=== PATIENT | female | born 1965 | race African-American/Black ===

== ENCOUNTER → 2016-06-25 10:06 | Outpatient (CLI) | payer MEDICARE, MEDICAID | END | disposition home or self-care (01) | LOC: D.US 10:06 | DX: M71.22 Synovial cyst of popliteal space [Baker], left knee (principal) ==

== ENCOUNTER → 2016-07-23 14:08 | Outpatient (CLI) | payer MEDICARE, MEDICAID | END | disposition home or self-care (01) | LOC: D.MRI 07-22 09:00 | DX: M71.21 Synovial cyst of popliteal space [Baker], right knee (principal) ==

== ENCOUNTER 2018-07-28 11:36 | Emergency (ER) | payer MEDICARE, MEDICAID ==
[~2018-07-28] VITALS: Ht 170.2 cm; Wt 89.5 kg
[2018-07-28] MEDS ORDERED: CENTRUM COMPLE1 EACH PO (11:59)
[2018-07-28] MEDS ORDERED: CLARINEX5 MG PO (12:00)
[2018-07-28] MEDS ORDERED: XANAX2 MG PO (12:00)
[2018-07-28] MEDS ORDERED: NEURONTIN600 MG PO (12:01)
[2018-07-28] MEDS ORDERED: K-DUR20 MEQ PO (12:01)
[2018-07-28] MEDS ORDERED: LASIX40 MG PO (12:01)
[2018-07-28 12:33] LABS: BASOPHILS 0.2 % (0-2); EOSINOPHILS 0.6 % (0-7); HEMATOCRIT 44.7 % (36.0-48.0); HEMOGLOBIN 15.8 g/dL (12-16); IMMATURE GRANULOCYTES 0.2 % (0-5); LYMPHOCYTES 22.2 % (15-50); MCH 32.5 pg (26.0-34.0); MCHC 35.3 g/dL (31.0-37.0); MEAN PLATELET VOLUME 10.4 fL (7.4-10.4); MONOCYTES 9.7 % (2-11); NEUTROPHILS 67.1 % (40-80); PLATELET COUNT 310 10x3/uL (130-400); RBC 4.86 10x6/uL (4.00-5.40); RDW 12.7 % (11.5-14.5); WBC 5.2 10x3/uL (4.8-10.8)
[2018-07-28 13:00] LABS: APPEARANCE HAZY (CLEAR); BILIRUBIN 2+ (NEGATIVE); COLOR YELLOW (YELLOW); GLUCOSE NEGATIVE (NEGATIVE); KETONE SMALL mg/dL (NEGATIVE); NITRITE NEGATIVE (NEGATIVE); PROTEIN 1+ mg/dL (NEGATIVE); SPECIFIC GRAVITY 1.015 (1.005-1.020); UROBILINOGEN NORMAL (NORMAL)
[2018-07-28 13:03] LABS: BACTERIA MODERATE /hpf (NONE SEEN); EPITHELIAL CELLS 0-5 /hpf (0-5); RED CELLS - URINE 0-5 /hpf (0-5); WHITE CELLS - URINE 0-5 /hpf (0-5)
[2018-07-28 13:04] LABS: ANION GAP 16.8 mmol/L (8-16); BILIRUBIN - TOTAL 0.44 mg/dL (0.2-1.3); CALCIUM 9.7 mg/dL (8.5-10.1); CARBON DIOXIDE 24.2 mmol/L (21.0-32.0); CREATININE - SERUM 0.9 mg/dL (0.6-1.3)
[2018-07-28] MEDS ORDERED: TAMIFLU75 MG PO (14:14)
[2018-07-28] MEDS ORDERED: ZOFRAN ODT4 MG/UDTAB PO (14:14)
== END 2018-07-28 15:15 | disposition home or self-care (01) ==
LOC: D.ER 11:36
PROVIDERS: Family Medicine
DX: J11.1 Influenza due to unidentified influenza virus with other respiratory manifestations (principal); R05 Cough; R11.2 Nausea with vomiting, unspecified; R19.7 Diarrhea, unspecified

== ENCOUNTER 2019-03-18 13:32 | Emergency (ER) | payer MEDICARE ==
[~2019-03-18] VITALS: Ht 170.2 cm; Wt 85.0 kg
[~2019-03-18 13:32] MED LIST: CENTRUM COMPLE1 EACH PO; CLARINEX5 MG PO; K-DUR20 MEQ PO; LASIX40 MG PO; NEURONTIN600 MG PO; TAMIFLU75 MG PO; XANAX2 MG PO; ZOFRAN ODT4 MG/UDTAB PO
[2019-03-18 13:40] VITALS: Ht 170.2 cm; Wt 85.0 kg
[2019-03-18 14:11] LABS: BASOPHILS 0.2 % (0-2); EOSINOPHILS 0.2 % (0-7); HEMATOCRIT 38.3 % (36.0-48.0); HEMOGLOBIN 13.1 g/dL (12-16); IMMATURE GRANULOCYTES 0.2 % (0-5); LYMPHOCYTES 28.6 % (15-50); MCHC 34.2 g/dL (31.0-37.0); MCV 99.5 fL (80.0-100.0); MEAN PLATELET VOLUME 9.3 fL (7.4-10.4); NEUTROPHILS 55.8 % (40-80); RBC 3.85 10x6/uL (4.00-5.40); RDW 12.8 % (11.5-14.5); WBC 4.8 10x3/uL (4.8-10.8)
[2019-03-18 14:12] LABS: PLATELET COUNT 222 10x3/uL (130-400)
[2019-03-18 14:25] LABS: APTT 23.8 SECONDS (22.8-39.4); INR 1.12 (0.85-1.17); PROTIME 13.8 SECONDS (11.6-15.0)
[2019-03-18 14:31] LABS: ALBUMIN 3.6 g/dL (3.4-5.0); ALKALINE PHOSPHATASE 77 U/L (46-116); ALT (SGPT) 15 U/L (10-68); BILIRUBIN - TOTAL 0.41 mg/dL (0.2-1.3); CALC OSMOLALITY 276 mosm/kg (275-300); CALCIUM 9.1 mg/dL (8.5-10.1); CARBON DIOXIDE 26.5 mmol/L (21.0-32.0); CHLORIDE - SERUM 104 mmol/L (98-107); CREATININE - SERUM 0.8 mg/dL (0.6-1.3); GLUCOSE 97 mg/dL (74-106); POTASSIUM - SERUM 4.1 mmol/L (3.5-5.1); PROTEIN - SERUM 7.9 g/dL (6.4-8.2); SODIUM 139 mmol/L (136-145); UREA NITROGEN 11 mg/dL (7-18); eGFR NON AFRICAN AMERICAN 80 mL/min (90-120)
[2019-03-18 14:41] LABS: CKMB 0.8 U/L (0.0-3.6); CREATINE KINASE 61 UL (21-215); THYROID STIMULATING HORMONE 0.94 uIU/mL (0.36-3.74)
[2019-03-18 14:47] LABS: TROPONIN-I < 0.017 ng/mL (0.000-0.060)
[2019-03-18 15:29] VITALS: BP 114/71
== END 2019-03-18 15:30 | disposition home or self-care (01) ==
LOC: EDBD 13:32 → D.ER 13:32
PROVIDERS: Emergency Medicine
DX: S49.91XA Unspecified injury of right shoulder and upper arm, initial encounter (principal); W19.XXXA Unspecified fall, initial encounter; R41.82 Altered mental status, unspecified

== ENCOUNTER 2019-06-10 16:12 | Inpatient (IN) | payer MEDICARE ==
[~2019-06-10] VITALS: Ht 170.2 cm; Wt 82.0 kg
[2019-06-10 17:11] LABS: HEMATOCRIT 33.7 % (36.0-48.0); HEMOGLOBIN 11.7 g/dL (12-16); MCH 31.8 pg (26.0-34.0); MCHC 34.7 g/dL (31.0-37.0); MCV 91.6 fL (80.0-100.0); MEAN PLATELET VOLUME 9.3 fL (7.4-10.4); RBC 3.68 10x6/uL (4.00-5.40); RDW 11.5 % (11.5-14.5)
[2019-06-10] MEDS ORDERED: DECADRON4 MG PO (17:11)
[2019-06-10] MEDS ORDERED: ZOFRAN8 MG PO (17:12)
[2019-06-10] MEDS ORDERED: ELAVIL25 MG PO (17:12)
[2019-06-10] MEDS ORDERED: NAMENDA10 MG PO (17:12)
[2019-06-10 17:14] LABS: PLATELET COUNT 88 10x3/uL (130-400); WBC 0.6 10x3/uL (4.8-10.8)
[2019-06-10 17:15] LABS: CALC OSMOLALITY 273 mosm/kg (275-300); CALCIUM 8.2 mg/dL (8.5-10.1); CARBON DIOXIDE 27.4 mmol/L (21.0-32.0); CHLORIDE - SERUM 102 mmol/L (98-107); CREATININE - SERUM 0.8 mg/dL (0.6-1.3); GLUCOSE 127 mg/dL (74-106); POTASSIUM - SERUM 3.7 mmol/L (3.5-5.1); SODIUM 137 mmol/L (136-145); UREA NITROGEN 8 mg/dL (7-18); eGFR NON AFRICAN AMERICAN 80 mL/min (90-120)
[2019-06-10 17:15] LABS: APPEARANCE CLEAR (CLEAR); BILIRUBIN NEGATIVE (NEGATIVE); COLOR YELLOW (YELLOW); GLUCOSE NEGATIVE (NEGATIVE); KETONE MODERATE mg/dL (NEGATIVE); NITRITE NEGATIVE (NEGATIVE); PROTEIN NEGATIVE (NEGATIVE); UROBILINOGEN NORMAL (NORMAL)
[2019-06-10 17:32] LABS: ALBUMIN 3.1 g/dL (3.4-5.0); ALKALINE PHOSPHATASE 55 U/L (46-116); ALT (SGPT) 19 U/L (10-68); BILIRUBIN - TOTAL 0.11 mg/dL (0.2-1.3); CKMB 0.2 U/L (0.0-3.6); CREATINE KINASE 33 UL (21-215); MAGNESIUM - SERUM 1.6 mg/dL (1.8-2.4); PROTEIN - SERUM 6.9 g/dL (6.4-8.2); TROPONIN-I < 0.017 ng/mL (0.000-0.060)
[2019-06-10 17:34] LABS: UDS - AMPHET NEGATIVE QUAL (NEGATIVE); UDS - BARB NEGATIVE QUAL (NEGATIVE); UDS - BENZO NEGATIVE QUAL (NEGATIVE); UDS - COCAINE NEGATIVE QUAL (NEGATIVE); UDS - OPIATE NEGATIVE QUAL (NEGATIVE); UDS - PCP NEGATIVE QUAL (NEGATIVE); UDS - THC NEGATIVE QUAL (NEGATIVE)
[2019-06-10 18:11] LABS: BASOPHILS 4 % (0-2); LYMPHOCYTES 60 % (15-50); MONOCYTES 4 % (2-11); NEUTROPHILS 32 % (40-80); PLATELET ESTIMATE DECREASED
--- NOTE | 2019-06-10 18:20 | NUR ---
PT IS RESPONSIVE TO VERBAL STIMULI AND ALERT; SHE IS STILL UNABLE TO ANSWER QUESTIONS OR SPEAK WITH UNDERSTANDABLE WORDS;
--- NOTE | 2019-06-10 18:21 | NUR ---
FAMILY MEMBER ASKED THAT THE PATIENT NOT RECEIVE THE ROCEPHIN UNITL HE IS SURE SHE DOES NOT HAVE AN ALLERGY TO THE MEDICATION; HE IS AWAITING FOR SOMEONE TO BRING THE LIST WITH PREVIOUS ALLERGY
--- NOTE | 2019-06-10 18:46 | NUR ---
PT'S SPOUSE STATES SHE CAN HAVE THE ABX.
[2019-06-10 19:01] VITALS: BP 108/58
--- NOTE | 2019-06-10 20:27 | NUR ---
PT GIVEN HOME MED 1/[address] FRIDA PACHECO[address]
--- NOTE | 2019-06-10 20:44 | NUR ---
PT RECIEVED FROM ER VIA STRETCHER, ALERT, FOLLOWS COMMANDS, ABLE TO COMM SOME NEEDS BUT MOST OF SPEECH IS GIBBERISH, LUNGS CLEAR, RIGHT INFUSAPORT WITH NS @ 200 CC/HR, CHEN PATENT TO BSD, VITALS STABLE
[2019-06-10 21:10] VITALS: BP 115/92; BMI 28.3
[2019-06-10 23:00] VITALS: BP 81/61
--- NOTE | 2019-06-10 23:00 | NUR ---
PT RESTING QUIETLY WITHOUT DISTRESS, WILL CONT TO MONITOR
[2019-06-11] VITALS (19 sets, daily range): BP systolic 80–122; BP diastolic 54–90; Ht 170.2 cm; Wt 82.0 kg
--- NOTE | 2019-06-11 01:20 | NUR ---
PT ATTEMPTING TO TALK, SPEECH IS MOSTLY GIBBERISH OR WORD SALAD, CAN ANSWER YES TO SOME QUESTIONS, UNABLE TO WRITE LEGIBLE ON PAPER, BECOMING FRUSTRATED, ABLE TO ASCERTAIN PT NAUSEATED, GIVEN ZOFRAN FOR NAUSEA, WILL CONT TO MONITOR
--- NOTE | 2019-06-11 03:30 | NUR ---
LAB IN ROOM FOR BLOOD DRAW, PT ALERT, VITALS STABLE
[2019-06-11 04:05] LABS: BASOPHILS 0 % (0-2); EOSINOPHILS 0 % (0-7); HEMATOCRIT 29.9 % (36.0-48.0); HEMOGLOBIN 10.3 g/dL (12-16); MCH 31.4 pg (26.0-34.0); MCHC 34.4 g/dL (31.0-37.0); MCV 91.2 fL (80.0-100.0); MEAN PLATELET VOLUME 9.3 fL (7.4-10.4); MONOCYTES 2.4 % (2-11); NEUTROPHILS 36.6 % (40-80); PLATELET COUNT 86 10x3/uL (130-400); RBC 3.28 10x6/uL (4.00-5.40); RDW 11.4 % (11.5-14.5)
[2019-06-11 04:06] LABS: ALBUMIN 2.6 g/dL (3.4-5.0); ALKALINE PHOSPHATASE 42 U/L (46-116); ALT (SGPT) 16 U/L (10-68); BILIRUBIN - TOTAL 0.29 mg/dL (0.2-1.3); CALCIUM 7.7 mg/dL (8.5-10.1); CARBON DIOXIDE 25.5 mmol/L (21.0-32.0); CHLORIDE - SERUM 107 mmol/L (98-107); CREATININE - SERUM 0.7 mg/dL (0.6-1.3); GLUCOSE 120 mg/dL (74-106); POTASSIUM - SERUM 3.8 mmol/L (3.5-5.1); PROTEIN - SERUM 6.1 g/dL (6.4-8.2); SODIUM 139 mmol/L (136-145); eGFR NON AFRICAN AMERICAN > 90 mL/min (90-120)
[2019-06-11 04:16] LABS: WBC 0.4 10x3/uL (4.8-10.8)
[2019-06-11 04:17] LABS: CALC OSMOLALITY 275 mosm/kg (275-300); UREA NITROGEN 4 mg/dL (7-18)
--- NOTE | 2019-06-11 05:17 | NUR ---
pt sleeping with no distress noted
--- NOTE | 2019-06-11 10:32 | NUR ---
0700 PT RECIEVED IN BED, AWAKENS TO VERBAL STIMULI, ABLE TO FOLLOW COMMANDS, HAND SENIOR SOFTWARE PROJECT MANAGER EQUAL, WHEN SPEAKING HAS WORD SALAD AND ECHOLALIA, SEE SHIFT ASSESSMENT FOR DETAILS 0900 WHEN GIVING AM MEDS PT CLIMBING OUT OF BED, STATED NO AND WAS REPEATING "I WANT IN BED" ANGRILY BUT DID NOT GET BACK IN BED, ASKED IF WANTED IN CHAIR/TO USE BATHROOM/ETC AND PT BECAME MORE AGITATED AND WOULD NOT SIT DOWN OR LET GO OF MEDICATIONS, CHARGE NURSE CALLED TO ROOM AND PT TOOK MEDICATIONS AND LAYED BACK IN BED 0930 PTS SON CALLED FOR UPDATE, TOLD THAT WITHOUT SECURITY CODE SET UP COULD NOT GIVE DETAILS BUT HE SHOULD COME IN AND SET ONE UP, SON BEGAN YELLING THAT HE WAS WORKING AND COULDNT COME IN, WAS TOLD PT IS STABLE AND HE CONTINUED YELLING THEN HUNG UP. CHARGE NURSE NOTIFIED
--- NOTE | 2019-06-11 11:05 | NUR ---
REPORT GIVEN TO Adithya DURAN RN
--- NOTE | 2019-06-11 11:27 | NUR ---
REPORT RECEIVED. WALKED INTO PT ROOM TO GIVE PROBIOTIC. PT WOULD BARELY OPEN EYES TO LOOK AT ME. REPEATED ASKING IF PT WOULD TAKE MEDICATION. IGNORED ME THEN WENT BACK TO SLEEP. WILL CONTINUE TO MONITOR.
--- NOTE | 2019-06-11 11:57 | MORECARE ---
CASE MANAGEMENT DISCHARGE SUMMARY PATIENT: STEVE DORAN UNIT: [id number] ADM DATE: 06/10/19 AGE: 53 : 67 SEX: F ROOM/BED: D.2311 AUTHOR: BRYANNA DICKSON PHYSICIAN: REFERRING PHYSICIAN: DALE GALICIA MD DATE OF SERVICE: 06/11/19 Discharge Plan Patient Name: STEVE DORAN Facility: [facility]:[place] : 1965 Planned Disposition: Anticipated Discharge Date: Discharge Date: Expected LOS: Initial Reviewer: [email or web address] Initial Review Date: 06/10/2019 Generated: 06/11/19 12:57 pm Comments DCP- Discharge Planning Updated by [email or web address]: Cheryl Alonso on 06/11/19 10:[address] CM received notification that patient is needing transferred to [facility]. CM was told that [facility] didn't have bed available on admit. CM contacted transfer center to check status of transfer and they didn't have anything on this patient. CM gave patient information to transfer center and faxed records. CM contacted Flight Engineer Performance Qualified Hortencia of request for transfer and she agreed. CM will await call back from transfer center on bed. CM will continue to follow and assist as needed with discharge planning / needs External Providers External Provider: TRANS-TRANSFER CALL CENTER Next Contact Date: Service Request Date: Service Type: Resolution: Reviewer: Comments: Patient Name: STEVE DORAN Page [phone] at 1157 All edits/amendments must be made on the electronic document DICTATION DATE: 06/11/19 1157 CARD SORTER: GENE 06/11/19 1157 RPT#: [id number] DC DATE: STATUS: ADM IN [facility] [address] [place] [address] END OF REPORT
--- NOTE | 2019-06-11 13:14 | NUR ---
PT'S IN TO ANSWER SOME QUESTIONS. HE STATES THAT " HASN'T TAKEN ANY PRESCRIBED MEDICATIONS SINCE D/C FROM [facility] ON TUESDAY (06/08/19)." STATES THAT HE THINKS IT'S POSSIBLE PT HAS STARTED USING HEROIN. SAID THAT SHE WAS BOTH HOMICIDAL AND SUICIDAL AND THAT SHE "HAD A LIST OF PEOPLE SHE WANTED TO KILL" WHEN SHE WAS DISCHARGED FROM [facility]. , [phone]
--- NOTE | 2019-06-11 14:15 | NUR ---
REPORT GIVEN TO [facility]. SPOKE WITH SHANNAN SIBLEY. STATED THEY HAD ACCEPTED PT BUT WERE WAITING ON A BED TO OPEN.
--- NOTE | 2019-06-11 14:28 | NUR ---
PT NOTIFIED OF TRANSFER TO [facility] WHEN A BED BECOMES AVAILABLE. VERBALIZES UNDERSTANDING. ABLE TO HAVE CONVERSATION WITH ME WITHOUT ANY APHASIC EPISODES. WILL CONTINUE TO MONITOR.
--- NOTE | 2019-06-11 16:03 | NUR ---
VISITED WITH PT. LEFT NUMBER IN CASE PT TRANSFERS BEFORE HE GETS OFF WORK AT 1730. PT HAS NO COMPLAINTS OR NEEDS AT THIS TIME. WILL CONTINUE TO MONITOR.
--- NOTE | 2019-06-11 17:30 | MORECARE ---
CASE MANAGEMENT DISCHARGE SUMMARY PATIENT: STEVE DORAN UNIT: [id number] ADM DATE: 06/10/19 AGE: 53 : 67 SEX: F ROOM/BED: D.2311 AUTHOR: BRYANNA DICKSON PHYSICIAN: REFERRING PHYSICIAN: DALE GALICIA MD DATE OF SERVICE: 06/11/19 Discharge Plan Patient Name: STEVE DORAN Facility: [facility]:[place] : 1965 Planned Disposition: Anticipated Discharge Date: Discharge Date: Expected LOS: Initial Reviewer: [email or web address] Initial Review Date: 06/10/2019 Generated: 06/11/19 6:29 pm Comments DCP- Discharge Planning Updated by [email or web address]: Cheryl Alonso on 06/11/19 4:[address] [facility] has accepted patient awaiting bed availability. CM will continue to follow and assist as needed with discharge planning / needs DCP- Discharge Planning Updated by [email or web address]: Cheryl Alonso on 06/11/19 10:[address] CM received notification that patient is needing transferred to [facility]. CM was told that [facility] didn't have bed available on admit. CM contacted transfer center to check status of transfer and they didn't have anything on this patient. CM gave patient information to transfer center and faxed records. CM contacted Egg Grader Hortencia of request for transfer and she agreed. CM will await call back from transfer center on bed. CM will continue to follow and assist as needed with discharge planning / needs Last DP export: 06/11/19 10:57 am Patient Name: STEVE DORAN Page 19853 at 1730 All edits/amendments must be made on the electronic document DICTATION DATE: 06/11/191728 CERAMIC TILE SETTER: GENE 06/11/191728 RPT#: [id number] DC DATE: STATUS: ADM IN [address] [place] [address] END OF REPORT
--- NOTE | 2019-06-11 17:47 | NUR ---
CALL CENTER CALLED TO UPDATE AND STATED THERE WAS STILL NO BED AVAILABLE AT [facility] AT THIS TIME. WILL NOTIFY US WHEN THERE IS ONE.
--- NOTE | 2019-06-12 17:20 | MORECARE ---
CASE MANAGEMENT DISCHARGE SUMMARY PATIENT: STEVE DORAN UNIT: [id number] ADM DATE: 06/10/19 AGE: 53 : 67 SEX: F ROOM/BED: D.2311 AUTHOR: BRYANNA DICKSON PHYSICIAN: REFERRING PHYSICIAN: DALE GALICIA MD DATE OF SERVICE: 06/12/19 Discharge Plan Patient Name: STEVE DORAN [facility] [facility] 1965 Planned Disposition: Anticipated Discharge Date: Discharge Date: 06/11/2019 Expected LOS: Initial Reviewer: [email or web address] Initial Review Date: 06/10/2019 Generated: 06/12/19 6:20 pm Comments DCP- Discharge Planning Updated by [email or web address]: Cheryl Alonso on 06/11/19 4:[address] [facility] has accepted patient awaiting bed availability. CM will continue to follow and assist as needed with discharge planning / needs DCP- Discharge Planning Updated by [email or web address]: Cheryl Alonso on 06/11/19 10:[address] CM received notification that patient is needing transferred to [facility]. CM was told that [facility] didn't have bed available on admit. CM contacted transfer center to check status of transfer and they didn't have anything on this patient. CM gave patient information to transfer center and faxed records. CM contacted Preparation Supervisor Canning Hortencia of request for transfer and she agreed. CM will await call back from transfer center on bed. CM will continue to follow and assist as needed with discharge planning / needs Last DP export: 06/11/19 4:30 pm Patient Name: STEVE DORAN Page [phone] at 1720 All edits/amendments must be made on the electronic document DICTATION DATE: 06/12/191719 JOURNALISTS AND OTHER WRITERS: GENE 06/12/191719 RPT#: [id number] DC DATE:06/11/19 STATUS: DIS IN [facility] [address] [place] [address] END OF REPORT
== END 2019-06-11 22:32 | disposition short-term general hospital (02) | DRG 872 ==
LOC: D.ER 16:12 → D.ICU 19:38
PROVIDERS: Family Medicine; ADMIT Legal Medicine; ATTEND Legal Medicine
DX: A41.9 Sepsis, unspecified organism (principal); E27.2 Addisonian crisis; C79.31 Secondary malignant neoplasm of brain; C50.919 Malignant neoplasm of unspecified site of unspecified female breast; D72.829 Elevated white blood cell count, unspecified

== ENCOUNTER 2019-07-06 08:52 | Emergency (ER) | payer MEDICARE ==
[~2019-07-06] VITALS: Ht 170.2 cm; Wt 77.3 kg
[~2019-07-06 08:52] MED LIST changes: +DECADRON4 MG PO; +ELAVIL25 MG PO; +NAMENDA10 MG PO; +ZOFRAN8 MG PO
[2019-07-06 08:54] VITALS: Ht 170.2 cm; Wt 77.3 kg
[2019-07-06 09:37] LABS: INR 1.05 (0.85-1.17); PROTIME 13.7 SECONDS (11.6-15.0)
[2019-07-06 09:38] LABS: APTT 34.7 SECONDS (22.8-39.4)
[2019-07-06 10:00] LABS: ALBUMIN 2.9 g/dL (3.4-5.0); ALKALINE PHOSPHATASE 55 U/L (30-120); ALT (SGPT) 28 U/L (10-68); BILIRUBIN - TOTAL 0.25 mg/dL (0.2-1.3); CALC OSMOLALITY 276 mosm/kg (275-300); CALCIUM 8.3 mg/dL (8.5-10.1); CARBON DIOXIDE 26.7 mmol/L (21.0-32.0); CHLORIDE - SERUM 102 mmol/L (98-107); CKMB 0.3 U/L (0.0-3.6); CREATINE KINASE 27 UL (21-215); CREATININE - SERUM 0.9 mg/dL (0.6-1.3); GLUCOSE 123 mg/dL (74-106); MAGNESIUM - SERUM 1.3 mg/dL (1.8-2.4); PROTEIN - SERUM 6.4 g/dL (6.4-8.2); SODIUM 140 mmol/L (136-145); THYROID STIMULATING HORMONE 3.17 uIU/mL (0.36-3.74); TROPONIN-I 0.022 ng/mL (0.000-0.060); UREA NITROGEN 4 mg/dL (7-18); eGFR NON AFRICAN AMERICAN 70 mL/min (90-120)
[2019-07-06 10:05] LABS: BASOPHILS 0.2 % (0-2); HEMATOCRIT 29.8 % (36.0-48.0); HEMOGLOBIN 9.8 g/dL (12-16); IMMATURE GRANULOCYTES 0.8 % (0-5); LYMPHOCYTES 15.1 % (15-50); MCH 30.9 pg (26.0-34.0); MCHC 32.9 g/dL (31.0-37.0); MEAN PLATELET VOLUME 8.9 fL (7.4-10.4); MONOCYTES 11.8 % (2-11); NEUTROPHILS 71.1 % (40-80); RBC 3.17 10x6/uL (4.00-5.40); RDW 13.1 % (11.5-14.5); WBC 5.9 10x3/uL (4.8-10.8)
[2019-07-06 10:07] LABS: PLATELET COUNT 290 10x3/uL (130-400)
[2019-07-06 10:08] LABS: POTASSIUM - SERUM 2.9 mmol/L (3.5-5.1)
[2019-07-06 11:25] VITALS: BP 101/71
== END 2019-07-06 11:25 | disposition other institution (70) ==
LOC: D.ER 08:52
PROVIDERS: Family Medicine
DX: R29.818 Other symptoms and signs involving the nervous system (principal); R47.01 Aphasia; G40.89 Other seizures; Z85.841 Personal history of malignant neoplasm of brain

== ENCOUNTER 2019-08-26 18:41 | Emergency (ER) | payer MEDICARE ==
[2019-08-26 18:45] VITALS: Ht 170.2 cm
[2019-08-26 19:42] LABS: BASOPHILS 0.2 % (0-2); EOSINOPHILS 0 % (0-7); HEMATOCRIT 34.6 % (36.0-48.0); HEMOGLOBIN 11.5 g/dL (12-16); IMMATURE GRANULOCYTES 0.6 % (0-5); LYMPHOCYTES 13.5 % (15-50); MCH 31.6 pg (26.0-34.0); MCHC 33.2 g/dL (31.0-37.0); MCV 95.1 fL (80.0-100.0); NEUTROPHILS 69.7 % (40-80); PLATELET COUNT 267 10x3/uL (130-400); RBC 3.64 10x6/uL (4.00-5.40); RDW 13.7 % (11.5-14.5); WBC 5.3 10x3/uL (4.8-10.8)
[2019-08-26 19:49] LABS: CALC OSMOLALITY 268 mosm/kg (275-300); CALCIUM 8.8 mg/dL (8.5-10.1); CARBON DIOXIDE 26.1 mmol/L (21.0-32.0); CHLORIDE - SERUM 99 mmol/L (98-107); CREATININE - SERUM 0.8 mg/dL (0.6-1.3); GLUCOSE 106 mg/dL (74-106); POTASSIUM - SERUM 3.6 mmol/L (3.5-5.1); SODIUM 135 mmol/L (136-145); UREA NITROGEN 9 mg/dL (7-18); eGFR NON AFRICAN AMERICAN 80 mL/min (90-120)
[2019-08-26 19:57] LABS: ALBUMIN 3.2 g/dL (3.4-5.0); ALKALINE PHOSPHATASE 67 U/L (30-120); ALT (SGPT) 20 U/L (10-68); BILIRUBIN - TOTAL 0.25 mg/dL (0.2-1.3); MAGNESIUM - SERUM 1.5 mg/dL (1.8-2.4); PROTEIN - SERUM 7.4 g/dL (6.4-8.2)
[2019-08-26] MEDS ORDERED: AUGMENTIN 875-11 TAB PO (20:03)
[2019-08-26] MEDS ORDERED: KEPPRA500 MG PO (20:03)
[2019-08-26 20:15] LABS: BILIRUBIN NEGATIVE (NEGATIVE); GLUCOSE NEGATIVE (NEGATIVE); KETONE NEGATIVE (NEGATIVE); NITRITE NEGATIVE (NEGATIVE); SPECIFIC GRAVITY 1.015 (1.005-1.020); UROBILINOGEN NORMAL (NORMAL)
[2019-08-26 20:17] LABS: BACTERIA FEW /hpf (NEGATIVE); EPITHELIAL CELLS 0-5 /hpf (0-5); RED CELLS - URINE 0-5 /hpf (0-5)
[2019-08-26 20:20] LABS: UDS - AMPHET NEGATIVE QUAL (NEGATIVE); UDS - BARB NEGATIVE QUAL (NEGATIVE); UDS - BENZO NEGATIVE QUAL (NEGATIVE); UDS - COCAINE NEGATIVE QUAL (NEGATIVE); UDS - OPIATE NEGATIVE QUAL (NEGATIVE); UDS - PCP NEGATIVE QUAL (NEGATIVE); UDS - THC NEGATIVE QUAL (NEGATIVE)
[2019-08-26 20:34] VITALS: BP 112/75
== END 2019-08-26 20:34 | disposition home or self-care (01) ==
LOC: D.ER 18:41
PROVIDERS: Emergency Medicine
DX: G40.409 Other generalized epilepsy and epileptic syndromes, not intractable, without status epilepticus (principal); J32.0 Chronic maxillary sinusitis

== ENCOUNTER 2019-11-13 13:07 | Inpatient (IN) | payer MEDICARE ==
[~2019-11-13] VITALS: Ht 170.2 cm; Wt 66.7 kg
[~2019-11-13 13:07] MED LIST changes: +AUGMENTIN 875-11 TAB PO; +KEPPRA500 MG PO
[2019-11-13] MEDS ORDERED: OXYCONTIN10 MG PO (13:17)
[2019-11-13 14:04] LABS: CALC OSMOLALITY 272 mosm/kg (275-300); CALCIUM 8.9 mg/dL (8.5-10.1); CARBON DIOXIDE 28.3 mmol/L (21.0-32.0); CHLORIDE - SERUM 99 mmol/L (98-107); CREATININE - SERUM 0.8 mg/dL (0.6-1.3); GLUCOSE 115 mg/dL (74-106); POTASSIUM - SERUM 4.1 mmol/L (3.5-5.1); SODIUM 134 mmol/L (136-145); UREA NITROGEN 23 mg/dL (7-18); eGFR NON AFRICAN AMERICAN 79 mL/min (90-120)
[2019-11-13 14:19] LABS: ALBUMIN 2.4 g/dL (3.4-5.0); ALKALINE PHOSPHATASE 85 U/L (30-120); ALT (SGPT) 20 U/L (10-68); BILIRUBIN - TOTAL 0.26 mg/dL (0.2-1.3)
--- NOTE | 2019-11-13 14:28 | NUR ---
RIGHT CHEST INFUSA PORT ACCESSED, BLOOD DRAW OBTAINED, FLUSHED WITH 20CC N/S, LOC IN PLACE, STERIL TECH. USED FOR ACCESS.
[2019-11-13 14:40] LABS: INR 1.13 (0.85-1.17); PROTIME 14.5 SECONDS (11.6-15.0)
[2019-11-13 14:51] LABS: HEMATOCRIT 35.4 % (36.0-48.0); HEMOGLOBIN 11.6 g/dL (12-16); MCHC 32.8 g/dL (31.0-37.0); MCV 94.7 fL (80.0-100.0); MEAN PLATELET VOLUME 9.4 fL (7.4-10.4); PLATELET COUNT 270 10x3/uL (130-400); RBC 3.74 10x6/uL (4.00-5.40); RDW 16.2 % (11.5-14.5); WBC 20.1 10x3/uL (4.8-10.8)
[2019-11-13 15:00] VITALS: BP 104/63
[2019-11-13 16:14] LABS: LYMPHOCYTES 9 % (15-50); MONOCYTES 3 % (2-11); NEUTROPHILS 86 % (40-80); PLATELET ESTIMATE NORMAL
[2019-11-13 16:21] LABS: BILIRUBIN NEGATIVE (NEGATIVE); GLUCOSE NEGATIVE (NEGATIVE); KETONE NEGATIVE (NEGATIVE); NITRITE NEGATIVE (NEGATIVE); SPECIFIC GRAVITY 1.025 (1.005-1.020); UROBILINOGEN NORMAL (NORMAL)
[2019-11-13 17:00] VITALS: BP 101/72
--- NOTE | 2019-11-13 19:01 | NUR ---
VERBAL ORDER FROM TALI SMITH APN TO STOP LR BOLAS AT 1000CC.
--- NOTE | 2019-11-13 19:38 | NUR ---
ROCEPHIN COMPLETE AT THIS TIME.
--- NOTE | 2019-11-13 19:50 | NUR ---
RECEIEVED PT FROM ER VIA STRETCHER. PT ALERT AND ORIENTED AND ANSWERS MOST QUESTIONS. EXPRESSIVE APHASIA NOTED. SPEECH IS SLURRED AND GARBLED. IRRITABLE AND DEMANDING. HAS RT SIDED WEAKNESS OF BUE AND BLE. DENIES DIFF SWALLOWING. RT CW INFUSAPORT WITH NS INFUSING. RESP EVEN AND NONLABORED. SCDS PLACED ON PT. SHAN ALARM ON FOR PT SAFETY. INSTRUCTED OF BED REST. SR ELEVATED X2. CL IN REACH.
[2019-11-13 20:00] VITALS: BP 95/65
[2019-11-13 21:01] LABS: CKMB 0.6 U/L (0.0-3.6); CREATINE KINASE 14 UL (21-215); MAGNESIUM - SERUM 1.7 mg/dL (1.8-2.4)
[2019-11-13 21:06] LABS: TROPONIN-I 0.307 ng/mL (0.000-0.060)
--- NOTE | 2019-11-13 21:58 | NUR ---
MEDICATED WITH MAG OX AT THIS TIME DUE TO LOW MAGNESIUM. PT REFUSED THE ASPIRIN. STATES SHE CANT TAKE ASPIRIN OR TYLENOL BECAUSE IT INTERFERES WITH HER CHEMO BUT REPORTS SHE JUST FINISHED HER LAST DOSE OF CHEMO AND RADIATION. REPORTS ALLERGY OF COMPAZINE AND ZITHROMAX WHICH WERE ADDED TO PROFILE. REVIEWED HOME MEDS WITH PT. SON AT BEDSIDE, AGITATED THAT STAFF IS ASKING HER QUESTIONS ABOUT HER HISTORY AND MEDS. HE INTERRUPTS FREQUENTLY DURING ASSESSMENT. SON STATES, "DOES ALL THIS STUFF NOT TRANSFER ON HER CHART FROM WHEN SHE WAS HERE LAST TIME?" PT BECOMING AGITATED WITH HIS INTERRUPTIONS. PT SON AND PT BEGIN ARGUING ABOUT USING A PUREWICK. PT DOESNT WANT IT BUT SON WANTS HER TO USE IT. PT WANTS BEDPAN.
--- NOTE | 2019-11-13 22:40 | NUR ---
EKG DONE AT THIS TIME. SCDS APPLIED BILAT. BED BATH GIVEN AND COMPLETE LINEN CHANGE DONE AT THIS TIME DUE TO URINE INCONTINENCE. PT KELVIN WELL. SON AGITATED AND BEATING ON DOOR ASKING WHAT IS TAKING SO LONG AND WHAT WE ARE DOING. EXPLAINED TO HIM AGAIN. HE THEN TELLS HIS MOTHER THAT SHE IS GOING TO USE THE PUREWICK AND THEY START ARGUING.
--- NOTE | 2019-11-13 23:19 | NUR ---
PT REFUSED TO USE PUREWICK OR BEDPAN. BED ALARM ACTIVATED. PTS SON IN ROOM WITH PT AND WORKPLACE REHABILITATION OFFICER FOUND THEM IN THE BATHROOM. ADVISED PT AND SON AGAINST GETTING OOB WITHOUT HELP DUE TO RT SIDED WEAKNESS. PRINTED OFF RELEASE OF RESPONSIBILITY FOR BED ALARM AND EXPLAINED TO PT AND SON WHO BOTH REFUSED TO SIGN IT. INFORMED THEM THAT STAFF WAS NOT LIABLE TO FOR ACCIDENTS/FALLS BECAUSE THEY FAIL TO USE CALL FLORES FOR ASSISTANCE AND REFUSE TO COMPLY WITH STAFF INSTRUCTIONS. SHAN ALARM IS ON FOR PT SAFETY. SR ELEVATED X2. CL IN REACH OF PT.
--- NOTE | 2019-11-13 23:29 | NUR ---
CALLED STAFF BACK INTO ROOM AND STATES, "I'LL TRY THE PUREWICK." PUREWICK PLACED. SON AT BEDSIDE. BED ALARM ON. CL IN REACH.
[2019-11-14] VITALS (7 sets, daily range): BP systolic 87–139; BP diastolic 58–79; Ht 170.2 cm; Wt 66.7 kg
--- NOTE | 2019-11-14 02:30 | NUR ---
ASSISTED UP TO BSC WITH STAFF X2. SMALL FORMED BM NOTED. ASSISTED BACK TO BED. SHAN ALARM ON. CL IN REACH. SON AT BEDSIDE. EKG DONE AT THIS TIME.
[2019-11-14 02:53] LABS: CKMB 0.6 U/L (0.0-3.6); CREATINE KINASE 14 UL (21-215)
[2019-11-14 02:54] LABS: TROPONIN-I 0.354 ng/mL (0.000-0.060)
[2019-11-14 04:25] LABS: BASOPHILS 0.1 % (0-2); EOSINOPHILS 0.2 % (0-7); HEMATOCRIT 29.9 % (36.0-48.0); HEMOGLOBIN 9.7 g/dL (12-16); IMMATURE GRANULOCYTES 2.6 % (0-5); LYMPHOCYTES 12.5 % (15-50); MCH 31.2 pg (26.0-34.0); MCHC 32.4 g/dL (31.0-37.0); MCV 96.1 fL (80.0-100.0); MEAN PLATELET VOLUME 9.1 fL (7.4-10.4); MONOCYTES 16.3 % (2-11); NEUTROPHILS 68.3 % (40-80); RBC 3.11 10x6/uL (4.00-5.40)
[2019-11-14 04:26] LABS: PLATELET COUNT 180 10x3/uL (130-400); WBC 9.7 10x3/uL (4.8-10.8)
[2019-11-14 04:45] LABS: ALBUMIN 1.9 g/dL (3.4-5.0); ALKALINE PHOSPHATASE 64 U/L (30-120); ALT (SGPT) 15 U/L (10-68); BILIRUBIN - TOTAL 0.13 mg/dL (0.2-1.3); CALC OSMOLALITY 274 mosm/kg (275-300); CALCIUM 7.6 mg/dL (8.5-10.1); CARBON DIOXIDE 28.4 mmol/L (21.0-32.0); CHLORIDE - SERUM 103 mmol/L (98-107); CREATININE - SERUM 0.7 mg/dL (0.6-1.3); GLUCOSE 91 mg/dL (74-106); MAGNESIUM - SERUM 1.7 mg/dL (1.8-2.4); PROTEIN - SERUM 4.8 g/dL (6.4-8.2); SODIUM 136 mmol/L (136-145); UREA NITROGEN 22 mg/dL (7-18); eGFR NON AFRICAN AMERICAN > 90 mL/min (90-120)
[2019-11-14 04:48] LABS: POTASSIUM - SERUM 3.2 mmol/L (3.5-5.1)
--- NOTE | 2019-11-14 06:42 | NUR ---
MEDICATED WITH POTASSIUM POWDER AND MAG OX PER PROTOCOL. ASSISTED UP TO BSC TO VOID. BECAME NAUSEATED AND VOMITED. ORAL CARE DONE AT THIS TIME AND ASSISTED BACK TO BED. MEDICATED WITH ZOFRAN FOR NAUSEA. CL IN REACH. SHAN ALARM ON.
--- NOTE | 2019-11-14 07:53 | NUR ---
PT SITTING UP IN BED WITH SON AT BEDSIDE. RESP EVEN AND UNLABORED. BLOOD DRAW PER LAB REQUEST FROM RIGHT CHEST PORT. PORT ACCESSED WITH NS @ 125ML/HR INFUSING VIA PUMP. SITE WITHOUT REDNESS OR EDEMA. DENIES FURTHER NEEDS AT THIS TIME. CL WITHIN REACH. ENCOURAGED TO CALL WITH NEEDS. CONTINUE POC
[2019-11-14 08:30] LABS: CKMB 0.7 U/L (0.0-3.6); CREATINE KINASE 15 UL (21-215)
[2019-11-14 08:31] LABS: TROPONIN-I 0.362 ng/mL (0.000-0.060)
[2019-11-14 11:58] LABS: CHOL - HDL RATIO 3.4 ratio (2.3-4.1); LDL-HDL RATIO 1.7 ratio (1.5-3.5)
--- NOTE | 2019-11-14 14:55 | MORECARE ---
CASE MANAGEMENT DISCHARGE SUMMARY PATIENT: STEVE DORAN UNIT: [id number] ADM DATE: 11/13/19 AGE: 54 : 67 SEX: F ROOM/BED: D.2204 AUTHOR: RANDOLPH,DOC PHYSICIAN: REFERRING PHYSICIAN: MARIA C PORTER MD DATE OF SERVICE: 11/14/19 Discharge Plan Patient Name: STEVE DORAN Facility: [facility]:[place] : 1965 Planned Disposition: Home Anticipated Discharge Date: Discharge Date: Expected LOS: Initial Reviewer: [email or web address] Initial Review Date: 11/13/2019 Generated: 11/14/19 3:54 pm Comments DCP- Discharge Planning Updated by [email or web address]: Rocio Li on 11/14/19 1:[address] Patient Name: STEVE DORAN Admission Status: ER Accout number: [id number] Admission Date: 11-13-2019 : 1965 Admission Diagnosis: Attending: MARIA C PORTER Current LOS: 1 Anticipated DC Date: Planned Disposition: Home Primary Insurance: HU[employer]NA CHOICE PPO MCR ADVANT Discharge Planning Comments: CM met with patient to complete initial dc planning assessment. CM educated patient on the CM role and verbal consent given by patient to complete assessment. Patient lives at home with her and child. She needs help with some of her ADL's. At discharge patient plans to return home and feels this is a safe discharge. CM discussed availability of home health, rehab services, and medical equipment. Patient states that she "has all the equipment she needs" and did not want home health. She is very week and could not answer any more questions. Patient denied known discharge needs at this time. CM will continue to follow and will assist as needed with dc plans/needs. Membership Assistant: Rocio Li DCPIA - Discharge Planning Initial Assessment Updated by [email or web address]: Rocio Li on 11/14/19 2:52 pm * Is the patient Alert and Oriented? Yes * How many steps to enter\\exit or inside your home? * PCP SCOOTER OLIVERA * Pharmacy [facility] * Preadmission Environment Home with Family * ADLs Partial Dependent * Partial ADLs (Assistance needed) Ambulation Bathing Dressing Toileting * Equipment Walker Wheelchair * Other Equipment STATES "I HAVE ALL THE EQUIPMENT I NEED" * List name and contact numbers for known caregivers / representatives who currently or will assist patient after discharge: TONG DORAN (SPOUSE) [phone] * Verbal permission to speak to the caregivers and representatives has been obtained from the patient. Yes * Community resources currently utilized None * Additional services required to return to the preadmission environment? No * Can the patient safely return to the preadmission environment? Yes * Has this patient been hospitalized within the prior 30 days at any hospital? No Patient Name: STEVE DORAN Page [phone] at 1455 All edits/amendments must be made on the electronic document DICTATION DATE: 11/14/191453 ROLL WEIGHER: GENE 11/14/191453 RPT#: [id number] DC DATE: STATUS: ADM IN [facility] [address] [place] [address] END OF REPORT
[2019-11-15] VITALS: BP 94/57
--- NOTE | 2019-11-15 02:35 | NUR ---
PATIENT IN BED WITH FAMILY AT BEDSIDE. LEFT ARM RSERVE. POTR TO LEFT CHEST, WITH NS AT 125ML/HR IN PLACE. TELEMETRY IN PLACE WATER AND CALL LIGHT IN REACH. NO S/S OF DISTRESS.
[2019-11-15 04:00] VITALS: BP 89/55
[2019-11-15 06:26] LABS: % SATURATION 22 % (15-55); IRON 27 ug/dl (35-150); TOTAL IRON BIND CAPACITY 119 ug/dl (260-445); UNSAT IRON BIND CAPACITY 92 ug/dl (150-375)
[2019-11-15 06:38] LABS: ALBUMIN 1.7 g/dL (3.4-5.0); ALKALINE PHOSPHATASE 54 U/L (30-120); ALT (SGPT) 16 U/L (10-68); BILIRUBIN - TOTAL 0.19 mg/dL (0.2-1.3); CALCIUM 7.3 mg/dL (8.5-10.1); CARBON DIOXIDE 28.2 mmol/L (21.0-32.0); CHLORIDE - SERUM 104 mmol/L (98-107); CREATININE - SERUM 0.6 mg/dL (0.6-1.3); FERRITIN 505 ng/mL (3-244); GLUCOSE 84 mg/dL (74-106); MAGNESIUM - SERUM 1.8 mg/dL (1.8-2.4); POTASSIUM - SERUM 3.3 mmol/L (3.5-5.1); PROTEIN - SERUM 4.3 g/dL (6.4-8.2); SODIUM 135 mmol/L (136-145); eGFR NON AFRICAN AMERICAN > 90 mL/min (90-120)
[2019-11-15 06:43] LABS: HEMATOCRIT 26.1 % (36.0-48.0); HEMOGLOBIN 8.6 g/dL (12-16); MCH 31.6 pg (26.0-34.0); MEAN PLATELET VOLUME 8.9 fL (7.4-10.4); PLATELET COUNT 160 10x3/uL (130-400); RBC 2.72 10x6/uL (4.00-5.40); RDW 15.7 % (11.5-14.5)
[2019-11-15 06:45] LABS: CALC OSMOLALITY 267 mosm/kg (275-300); UREA NITROGEN 11 mg/dL (7-18)
[2019-11-15 07:05] LABS: WBC 6.8 10x3/uL (4.8-10.8)
--- NOTE | 2019-11-15 07:15 | NUR ---
SHIFT REPORT GIVEN. JESSICA AND PATIENT IN ROOM. CL IN REACH. NO NEEDS AT THIS TIME. WCTM
[2019-11-15 09:12] VITALS: BP 107/66
[2019-11-15 10:13] LABS: LYMPHOCYTES 11 % (15-50); MONOCYTES 9 % (2-11); NEUTROPHILS 80 % (40-80); PLATELET ESTIMATE NORMAL
[2019-11-15 13:20] VITALS: BP 98/64
[2019-11-15] MEDS ORDERED: OMNICEF300 MG PO (14:14)
--- NOTE | 2019-11-15 14:30 | NUR ---
PATIENT STATES SHE WANTS TO DISCHARGE AND GO TO [facility]. WILL NOTIFY 'S
--- NOTE | 2019-11-15 14:45 | NUR ---
FAMILY MEMBER AT THE DESK STATING THAT THE FAMILY MEMBER DOES NOT WANT TO TRANSFER TO [facility]. SPOKE AGAIN WITH THE PATIENT. PATIENT STATED AGAIN THAT SHE WANTED TO DISCHARGE AND GO TO [facility]. MALIA
--- NOTE | 2019-11-15 15:23 | NUR ---
DISCHARGE INSTRUCTIONS GIVEN. PATIENT AND MOTHER CALLIE VOICED UNDERSTANDING. PATIENT REQUESTED A BANDAID TO COVER REMOVAL OF GIRALDO NEEDLE FROM RIGHT CHEST PORT WHICH WAS REMOVED PER PROTOCOL. WILL WHEEL DOWN AND ASSIST TO CAR WITH HOSPITAL PERSONNEL.
--- NOTE | 2019-11-15 15:57 | NUR ---
OT NOTE: PT COMPLETED SIT TO STAND WITH CGA. PT COMPLETED CHAIR TO BED TSF WITH CGA. [phone] THANK YOU,JUANCARLOS DURBIN
--- NOTE | 2019-11-16 08:50 | MORECARE ---
CASE MANAGEMENT DISCHARGE SUMMARY PATIENT: STEVE DORAN UNIT: [id number] ADM DATE: 11/13/19 AGE: 54 : 67 SEX: F ROOM/BED: D.2204 AUTHOR: RANDOLPH,DOC PHYSICIAN: REFERRING PHYSICIAN: MARIA C PORTER MD DATE OF SERVICE: 11/16/19 Discharge Plan Patient Name: STEVE DORAN Facility: [facility]:[place] : 1965 Planned Disposition: Home Anticipated Discharge Date: Discharge Date: 11/15/2019 Expected LOS: Initial Reviewer: [email or web address] Initial Review Date: 11/13/2019 Generated: 11/16/19 9:50 am Comments DCP- Discharge Planning Updated by [email or web address]: Rocio Li on 11/14/19 1:[address] Patient Name: STEVE DORAN Admission Status: ER Accout number: [id number] Admission Date: 11-13-2019 : 1965 Admission Diagnosis: Attending: MARIA C PORTER Current LOS: 1 Anticipated DC Date: Planned Disposition: Home Primary Insurance: HUMANA CHOICE PPO MCR ADVANT Discharge Planning Comments: CM met with patient to complete initial dc planning assessment. CM educated patient on the CM role and verbal consent given by patient to complete assessment. Patient lives at home with her and child. She needs help with some of her ADL's. At discharge patient plans to return home and feels this is a safe discharge. CM discussed availability of home health, rehab services, and medical equipment. Patient states that she "has all the equipment she needs" and did not want home health. She is very week and could not answer any more questions. Patient denied known discharge needs at this time. CM will continue to follow and will assist as needed with dc plans/needs. Wheel Truing Machine Tender: Rocio Li DCPIA - Discharge Planning Initial Assessment Updated by [email or web address]: Rocio Li on 11/14/19 2:52 pm * Is the patient Alert and Oriented? Yes * How many steps to enter\\exit or inside your home? * PCP SCOOTER OLIVERA * Pharmacy [facility] * Preadmission Environment Home with Family * ADLs Partial Dependent * Partial ADLs (Assistance needed) Ambulation Bathing Dressing Toileting * Equipment Walker Wheelchair * Other Equipment STATES "I HAVE ALL THE EQUIPMENT I NEED" * List name and contact numbers for known caregivers / representatives who currently or will assist patient after discharge: TONG DORAN (SPOUSE) [phone] * Verbal permission to speak to the caregivers and representatives has been obtained from the patient. Yes * Community resources currently utilized None * Additional services required to return to the preadmission environment? No * Can the patient safely return to the preadmission environment? Yes * Has this patient been hospitalized within the prior 30 days at any hospital? No Last DP export: 11/14/19 1:55 p Patient Name: STEVE DORAN Page [phone] at 0850 All edits/amendments must be made on the electronic document DICTATION DATE: 11/16/19 0850 PROFESSOR OF GERMAN: GENE 11/16/19 0850 RPT#: [id number] DC DATE:11/15/19 STATUS: DIS IN [facility] [address] [place] [address] END OF REPORT
--- NOTE | 2019-11-16 08:51 | EC ---
PATIENT:STEVE DORAN DATE OF SERVICE: 11/13/19 SEX: F MEDICAL RECORD: [id number] DATE OF : 67 LOCATION:[facility] AGE OF PATIENT: 54 ADMISSION DATE: 11/13/19 REFERRING PHYSICIAN: INTERPRETING PHYSICIAN: MAME ESTRADA MD ECHOCARDIOGRAM REPORT ECHO CHARGES 4 ECHO COMPLETE Date: 11/14/19 CLINICAL DIAGNOSIS: R/O STROKE ECHOCARDIOGRAPHIC MEASUREMENTS (adult normal given) AC root (d.<3.7cm) 2.8 cm LV Septum d (<1.2 cm> 0.9 cm Valve Excursion 1.5 cm LV Septum (systole) 1.1 cm Left Atria (s.<4.0cm> 2.3 cm LVPW d(<1.2cm) 0.9 cm RV (d.<2.3cm) 2.0 cm LVPW (sytole) 1.3 cm LV diastole(<5.6CM) 4.3 cm MV E-F(>70mm/sec) cm LV systole 3.1 cm LVOT Diameter 1.7 cm MV exc.(>10mm) cm Est.ejection fraction (50-75%) % DOPPLER: LVIT cm/sec A 59 cm/sec E 53 cm/sec LA cm/sec RVSP 16.5 mmHg LVOT 89 cm/sec AOP1/2T m/s Asc. Ao 84 cm/sec RVOT 55 cm/sec RA cm/sec PA 49 cm/sec AV Gradient Peak 2.6 mmHg AV Mean 1.9 mmHg AV Area 2.7 cm MV Gradient Peak 2.1 mmHg MV Mean 1.4 mmHg MV Area cm COMMENTS: Associate Professor Of Criminal Justice: Kristi SOLOMONCYRIL CRISTHIAN Poultry Slaughterer: 3 Dr. Paul TAPE# PACS Pericardial Effusion N DATE OF SERVICE: Adequate 2D, color flow imaging, spectral Doppler, and M-Mode. No LVH. LV internal dimensions are normal. Wall motion is normal. EF is greater than or equal to 55%. Aortic valve is tricuspid. No evidence of stenosis by Doppler interrogation. Left atrium is normal. Mitral valve shows no prolapse. Trace MR. Right-sided chambers are grossly normal. Trace TR. TRANSINT:[id number] Voice Confirmation ID: [id number] DOCUMENT ID: [id number] ECHOCARDIOGRAM REPORT [id number] STEVE DORAN MAME ESTRADA MD at 0851 CC: [id number] DICTATION DATE: 11/15/19 1423 INSPECTOR BALANCE BRIDGE: 11/15/19 1505 DIS IN 11/15/19 [id number] [place] [address]
== END 2019-11-15 15:55 | disposition home or self-care (01) | DRG 65 ==
LOC: D.ER 13:07 → D.MS 18:31
PROVIDERS: Family Medicine; ADMIT Emergency Medicine; ATTEND Emergency Medicine
DX: I63.9 Cerebral infarction, unspecified (principal); G81.94 Hemiplegia, unspecified affecting left nondominant side; E87.1 Hypo-osmolality and hyponatremia; C79.31 Secondary malignant neoplasm of brain; R65.10 Systemic inflammatory response syndrome (SIRS) of non-infectious origin without acute organ dysfunction; D64.9 Anemia, unspecified; J32.0 Chronic maxillary sinusitis; G40.409 Other generalized epilepsy and epileptic syndromes, not intractable, without status epilepticus; C50.919 Malignant neoplasm of unspecified site of unspecified female breast; Z86.73 Personal history of transient ischemic attack (TIA), and cerebral infarction without residual deficits

== ENCOUNTER 2020-01-02 13:59 | Emergency (ER) | payer MEDICARE ==
[~2020-01-02] VITALS: Ht 170.2 cm; Wt 52.3 kg
[~2020-01-02 13:59] MED LIST changes: +OMNICEF300 MG PO; +OXYCONTIN10 MG PO
[2020-01-02 14:21] VITALS: Ht 170.2 cm; Wt 52.3 kg
[2020-01-02 15:36] LABS: BASOPHILS 0.1 % (0-2); EOSINOPHILS 0.1 % (0-7); HEMATOCRIT 40.8 % (36.0-48.0); HEMOGLOBIN 12.8 g/dL (12-16); IMMATURE GRANULOCYTES 0.8 % (0-5); LYMPHOCYTES 24.8 % (15-50); MCH 31.3 pg (26.0-34.0); MCHC 31.4 g/dL (31.0-37.0); MCV 99.8 fL (80.0-100.0); MEAN PLATELET VOLUME 9.2 fL (7.4-10.4); MONOCYTES 9.6 % (2-11); NEUTROPHILS 64.6 % (40-80); PLATELET COUNT 159 10x3/uL (130-400); RBC 4.09 10x6/uL (4.00-5.40); RDW 14.1 % (11.5-14.5); WBC 8.9 10x3/uL (4.8-10.8)
[2020-01-02 15:52] LABS: APTT 25.7 SECONDS (22.8-39.4); INR 1.06 (0.85-1.17); PROTIME 13.7 SECONDS (11.6-15.0)
[2020-01-02 15:56] LABS: CALC OSMOLALITY 284 mosm/kg (275-300); CALCIUM 8.9 mg/dL (8.5-10.1); CARBON DIOXIDE 27.3 mmol/L (21.0-32.0); CHLORIDE - SERUM 107 mmol/L (98-107); CREATININE - SERUM 0.6 mg/dL (0.6-1.3); GLUCOSE 87 mg/dL (74-106); POTASSIUM - SERUM 3.5 mmol/L (3.5-5.1); SODIUM 142 mmol/L (136-145); UREA NITROGEN 21 mg/dL (7-18); eGFR NON AFRICAN AMERICAN > 90 mL/min (90-120)
[2020-01-02 16:16] LABS: ALBUMIN 2.3 g/dL (3.4-5.0); ALKALINE PHOSPHATASE 92 U/L (30-120); ALT (SGPT) 21 U/L (10-68); BILIRUBIN - TOTAL 0.27 mg/dL (0.2-1.3); CKMB 0.8 U/L (0.0-3.6); CREATINE KINASE 24 UL (21-215); MAGNESIUM - SERUM 1.8 mg/dL (1.8-2.4); PROTEIN - SERUM 6.8 g/dL (6.4-8.2); THYROID STIMULATING HORMONE 1.69 uIU/mL (0.36-3.74)
[2020-01-02 16:19] LABS: TROPONIN-I 0.086 ng/mL (0.000-0.060)
[2020-01-02 17:48] VITALS: BP 116/78
== END 2020-01-03 07:47 | disposition other institution (70) ==
LOC: D.ER 13:59
PROVIDERS: Family Medicine
DX: R47.81 Slurred speech (principal); R79.89 Other specified abnormal findings of blood chemistry; J45.909 Unspecified asthma, uncomplicated; K21.9 Gastro-esophageal reflux disease without esophagitis

== ENCOUNTER 2020-01-08 06:52 | Inpatient (IN) | payer MEDICARE ==
[~2020-01-08] VITALS: Ht 170.2 cm; Wt 77.0 kg
[2020-01-08] VITALS (36 sets, daily range): BP systolic 62–110; BP diastolic 32–89; BMI 21.0
--- NOTE | 2020-01-08 07:12 | NUR ---
0712- ETOMIDATE 30MG IV PUSH THROUGH RIGHT CHEST PORT AND 07 0713- SUCCINYLCHOLINE 100MG IV PUSH THROUGH RIGHT CHEST PORT. INTUBATION OCCURED AT 0715 WITH SUCCESSFUL PLACEMENT VERIFIED BY CHEST XRAY.
[2020-01-08 07:19] LABS: HEMATOCRIT 34.6 % (36.0-48.0); HEMOGLOBIN 10.7 g/dL (12-16); MCH 30.4 pg (26.0-34.0); MCHC 30.9 g/dL (31.0-37.0); MCV 98.3 fL (80.0-100.0); MEAN PLATELET VOLUME 8.6 fL (7.4-10.4); PLATELET COUNT 199 10x3/uL (130-400); RBC 3.52 10x6/uL (4.00-5.40); RDW 14.3 % (11.5-14.5); WBC 31.8 10x3/uL (4.8-10.8)
[2020-01-08 07:25] LABS: ANION GAP 14.6 mmol/L (8-16); CALCIUM 8.5 mg/dL (8.5-10.1); CARBON DIOXIDE 24.1 mmol/L (21.0-32.0); POTASSIUM - SERUM 3.7 mmol/L (3.5-5.1)
[2020-01-08 07:30] LABS: APTT 28.8 SECONDS (22.8-39.4); INR 1.23 (0.85-1.17); PROTIME 15.4 SECONDS (11.6-15.0)
[2020-01-08 07:33] LABS: ALBUMIN 1.9 g/dL (3.4-5.0); BILIRUBIN - TOTAL 0.25 mg/dL (0.2-1.3); MAGNESIUM - SERUM 1.8 mg/dL (1.8-2.4); PROTEIN - SERUM 6.5 g/dL (6.4-8.2)
[2020-01-08 07:58] LABS: UDS - AMPHET NEGATIVE QUAL (NEGATIVE); UDS - BARB NEGATIVE QUAL (NEGATIVE); UDS - BENZO NEGATIVE QUAL (NEGATIVE); UDS - COCAINE NEGATIVE QUAL (NEGATIVE); UDS - OPIATE POSITIVE QUAL (NEGATIVE); UDS - PCP NEGATIVE QUAL (NEGATIVE); UDS - THC NEGATIVE QUAL (NEGATIVE)
[2020-01-08 07:59] LABS: CKMB 0.7 U/L (0.0-3.6); CREATINE KINASE 32 UL (21-215); PRO BNP 1293 pg/mL (0-125)
[2020-01-08 08:01] LABS: TROPONIN-I 0.126 ng/mL (0.000-0.060)
[2020-01-08 08:04] LABS: BILIRUBIN NEGATIVE (NEGATIVE); KETONE NEGATIVE (NEGATIVE); NITRITE NEGATIVE (NEGATIVE); UROBILINOGEN NORMAL (NORMAL)
[2020-01-08 08:22] LABS: LYMPHOCYTES 7 % (15-50); MONOCYTES 3 % (2-11); NEUTROPHILS 82 % (40-80); PLATELET ESTIMATE NORMAL
--- NOTE | 2020-01-08 08:23 | NUR ---
FAMILY AT BEDSIDE AT THIS TIME. UPDATED ON PLAN OF CARE. PT IS RESTING, NO S/S OF DISTRESS. VITALS STABLE ON VENTALATOR.
[2020-01-08 13:44] LABS: CKMB 1.5 U/L (0.0-3.6); CREATINE KINASE 40 UL (21-215)
[2020-01-08 13:45] LABS: TROPONIN-I 0.216 ng/mL (0.000-0.060)
--- NOTE | 2020-01-08 15:40 | NUR ---
PT RECEIVED FROM OR. VSS. ASSESSMENT COMPLETE PER FLOW SHEET. DR HAAS GIVEN UPDATE REGAURDING CONSULT CARDIOLOGY PAGED MATY CALLED BACK GIVEN UPDATE REGAURDING CONSULT.
[2020-01-08] MEDS ORDERED: ELAVIL25 MG PO (16:06)
[2020-01-08] MEDS ORDERED: GABAPENTIN300 MG PO (16:07)
[2020-01-08] MEDS ORDERED: NAMENDA10 MG PO (16:07)
[2020-01-08] MEDS ORDERED: NYSTATIN100000 UN4 PO (16:08)
[2020-01-08] MEDS ORDERED: PROTONIX40 MG PO (16:09)
[2020-01-08] MEDS ORDERED: MIRALAX17 GM PO (16:10)
[2020-01-08] MEDS ORDERED: TRENTAL PO (16:10)
[2020-01-08] MEDS ORDERED: COMPAZINE25 MG RC (16:11)
[2020-01-08] MEDS ORDERED: PROAIR HFA8.5 G1 INH (16:11)
[2020-01-08] MEDS ORDERED: K-DUR20 MEQ PO (16:11)
[2020-01-08] MEDS ORDERED: SENNA8.8 MG/5 M PO (16:12)
[2020-01-08] MEDS ORDERED: ULTRAM50 MG PO (16:12)
--- NOTE | 2020-01-08 16:29 | NUR ---
MATY AGUILA APN AT BEDSIDE. GIVEN UPDATE. NO NEW ORDERS ELEVATED TROP R/T LACTIC, STATED CARDIOLOGY AWARE OF SINUS TACK, NO TREATMENT NEEDED AT THIS TIME.
--- NOTE | 2020-01-08 19:15 | NUR ---
REPORT RECEIVED, SHIFT ASSESSMENT COMPLETE, PT IS SEDATED ON VENT, ON 40% FIO2 WITH 97% O2 SAT. ALL PPP, VSS, WILL CON'T TO MONITOR
[2020-01-08 20:13] LABS: CKMB 1.3 U/L (0.0-3.6); CREATINE KINASE 65 UL (21-215); TROPONIN-I 0.135 ng/mL (0.000-0.060)
--- NOTE | 2020-01-08 21:16 | NUR ---
REPOSITIONED FOR COMFORT, ORAL CARE PROVIDED,
--- NOTE | 2020-01-08 23:20 | NUR ---
REASSESSMENT COMPLETE, NO CHANGES NOTED, WILL CON'T TO MONITOR
[2020-01-09] VITALS (24 sets, daily range): BP systolic 87–108; BP diastolic 61–83; Ht 170.2 cm; Wt 77.0 kg
[2020-01-09 06:23] LABS: BASOPHILS 0 % (0-2); EOSINOPHILS 0.1 % (0-7); HEMATOCRIT 28.3 % (36.0-48.0); HEMOGLOBIN 8.8 g/dL (12-16); IMMATURE GRANULOCYTES 0.4 % (0-5); LYMPHOCYTES 13.3 % (15-50); MCH 29.9 pg (26.0-34.0); MCHC 31.1 g/dL (31.0-37.0); MEAN PLATELET VOLUME 9.1 fL (7.4-10.4); MONOCYTES 5.3 % (2-11); NEUTROPHILS 80.9 % (40-80); PLATELET COUNT 164 10x3/uL (130-400); RBC 2.94 10x6/uL (4.00-5.40); RDW 14.3 % (11.5-14.5)
[2020-01-09 06:27] LABS: MCV 96.3 fL (80.0-100.0); WBC 11.2 10x3/uL (4.8-10.8)
[2020-01-09 06:40] LABS: % SATURATION 12 % (15-55); IRON 9 ug/dl (35-150); TOTAL IRON BIND CAPACITY 73 ug/dl (260-445); UNSAT IRON BIND CAPACITY 64 ug/dl (150-375)
[2020-01-09 06:53] LABS: ALKALINE PHOSPHATASE 97 U/L (30-120); ALT (SGPT) 19 U/L (10-68); BILIRUBIN - TOTAL 0.39 mg/dL (0.2-1.3); CALCIUM 7.6 mg/dL (8.5-10.1); CHLORIDE - SERUM 111 mmol/L (98-107); FERRITIN 649 ng/mL (3-244); PHENYTOIN (DILANTIN) 9.4 ug/mL (10.0-20.0); PROTEIN - SERUM 5.4 g/dL (6.4-8.2); SODIUM 145 mmol/L (136-145)
--- NOTE | 2020-01-09 07:00 | NUR ---
REPORT RECEIVED. ASSESSMENT COMPLETE PER LFOW SHEET. VSS. PT RESTING COMFORTABLY WILL CONTINUE TO MONITOR
[2020-01-09 07:22] LABS: ALBUMIN 1.3 g/dL (3.4-5.0); CALC OSMOLALITY 286 mosm/kg (275-300); CREATININE - SERUM 0.6 mg/dL (0.6-1.3); GLUCOSE 77 mg/dL (74-106); UREA NITROGEN 9 mg/dL (7-18); eGFR NON AFRICAN AMERICAN > 90 mL/min (90-120)
[2020-01-09 07:24] LABS: POTASSIUM - SERUM 2.3 mmol/L (3.5-5.1)
--- NOTE | 2020-01-09 09:15 | NUR ---
REPOSITIONED FOR COMFORT. NO NEW HCANGES IWLL CONTINUE TO MONITOR
--- NOTE | 2020-01-09 11:15 | NUR ---
REASSESSMENT COMPLETE PER FLOW SHEET. VSS. PT RESTING COMFORTABLY WILL CONTINUE TO MONITOR
--- NOTE | 2020-01-09 13:15 | NUR ---
DR HAAS AT BEDSIDE. GIVEN UPDATE. NO NEW CHANGES WILL CONTINIUE TO MONITOR
--- NOTE | 2020-01-09 15:00 | NUR ---
REASSESSMENT COMPLETE PER FLOW SHEET. VSS. PT RESTING COMFOTABLY WILL CONTINUE TO MONITOR
--- NOTE | 2020-01-09 17:00 | NUR ---
COMPLETE BB LINEN CHANGE ADM. NO NEW CHANGES WILL CONTINUE TO MONITOR
--- NOTE | 2020-01-09 19:15 | NUR ---
REPORT RECIEVED, SHIFT ASSESSMENT COMPLETE, PT IS ON VENT, 30% FIO2 WITH 97% O2 SAT, ALL PPP, VSS, WILL CON'T TO MONITOR
--- NOTE | 2020-01-09 21:00 | NUR ---
NO NEEDS NOTED AT THIS TIME, VSS
--- NOTE | 2020-01-09 23:14 | NUR ---
REASSESSMENT COMPLETE, NO CHANGES NOTED, WILL CON'T TO MONITOR
[2020-01-10] VITALS (24 sets, daily range): BP systolic 90–115; BP diastolic 69–87
--- NOTE | 2020-01-10 01:15 | NUR ---
NO NEEDS NOTED AT THIS TIME, WILL CON'T TO MONITOR
--- NOTE | 2020-01-10 03:10 | NUR ---
REASSESSMENT COMPLETE, NO CHANGES NOTED, WILL CON'T TO MONITOR
--- NOTE | 2020-01-10 03:59 | NUR ---
patient desated to 70%. hr increased sinus tach. suctioned inline and orally. will continue to monitor
[2020-01-10 04:30] LABS: BASOPHILS 0.1 % (0-2); EOSINOPHILS 0 % (0-7); HEMATOCRIT 29.4 % (36.0-48.0); HEMOGLOBIN 9.2 g/dL (12-16); IMMATURE GRANULOCYTES 0.2 % (0-5); LYMPHOCYTES 11.7 % (15-50); MCH 30.1 pg (26.0-34.0); MCHC 31.3 g/dL (31.0-37.0); MCV 96.1 fL (80.0-100.0); MONOCYTES 4.3 % (2-11); NEUTROPHILS 83.7 % (40-80); PLATELET COUNT 159 10x3/uL (130-400); RBC 3.06 10x6/uL (4.00-5.40); RDW 14.2 % (11.5-14.5)
[2020-01-10 04:56] LABS: ALBUMIN 1.1 g/dL (3.4-5.0); ALKALINE PHOSPHATASE 92 U/L (30-120); ALT (SGPT) 18 U/L (10-68); BILIRUBIN - TOTAL 0.43 mg/dL (0.2-1.3); CALC OSMOLALITY 285 mosm/kg (275-300); CALCIUM 7.2 mg/dL (8.5-10.1); CARBON DIOXIDE 22.9 mmol/L (21.0-32.0); CHLORIDE - SERUM 114 mmol/L (98-107); CREATININE - SERUM 0.5 mg/dL (0.6-1.3); GLUCOSE 72 mg/dL (74-106); SODIUM 145 mmol/L (136-145); UREA NITROGEN 8 mg/dL (7-18); eGFR NON AFRICAN AMERICAN > 90 mL/min (90-120)
[2020-01-10 04:59] LABS: POTASSIUM - SERUM 2.9 mmol/L (3.5-5.1)
--- NOTE | 2020-01-10 07:00 | NUR ---
pt report received from casino shift manager nurse. no acute signs of distress noted. pt resting in bed on vent. shift assessment completed. will continue to monitor. RT in room attempting to draw ABG.
--- NOTE | 2020-01-10 10:03 | NUR ---
[facility] RN IN ROOM. UPDATE GIVEN. NO NEW ORDERS RECEIVED AT THIS TIME. WILL CONTINUE TO MONITOR
--- NOTE | 2020-01-10 11:00 | NUR ---
PT RESTIGN IN BED. REASSESSMENT COMPLETED. NO SIGNS OF DISTRESS NOTED. DR HAAS AT BEDSIDE. UPDATE GIVEN. NO NEW ORDERS. WILL CONTINEU TO MONITOR
--- NOTE | 2020-01-10 15:00 | NUR ---
PT RESTIGN IN BED. REASSESSMENT COMPLETED. NO SIGNS OF DISTRESS NOTED. WILL CONTINUE TO MONITOR
--- NOTE | 2020-01-10 17:12 | NUR ---
PT RESTING IN BED. NO COMPLAINTS NOTED AT THIS TIME. WILL CONTINUE TO MONITOR
--- NOTE | 2020-01-10 19:00 | NUR ---
REPORT RECIEVED, SHIFT ASSESSMENT COMPLETE, PT IS ALERT/FOLLOWS COMMANDS ON THE VENT, ALL PPP, VSS, WILL CON'T TO MONITOR
[2020-01-11] VITALS (25 sets, daily range): BP systolic 94–138; BP diastolic 65–92
[2020-01-11 04:05] LABS: BASOPHILS 0 % (0-2); EOSINOPHILS 0 % (0-7); HEMOGLOBIN 7.7 g/dL (12-16); IMMATURE GRANULOCYTES 0.4 % (0-5); LYMPHOCYTES 8.6 % (15-50); MCH 29.7 pg (26.0-34.0); MCHC 30.8 g/dL (31.0-37.0); MCV 96.5 fL (80.0-100.0); MEAN PLATELET VOLUME 9.3 fL (7.4-10.4); MONOCYTES 3.1 % (2-11); NEUTROPHILS 87.9 % (40-80); PLATELET COUNT 176 10x3/uL (130-400); RBC 2.59 10x6/uL (4.00-5.40); RDW 14.5 % (11.5-14.5); WBC 12.8 10x3/uL (4.8-10.8)
[2020-01-11 04:29] LABS: ALBUMIN 1.1 g/dL (3.4-5.0); ALKALINE PHOSPHATASE 85 U/L (30-120); ALT (SGPT) 17 U/L (10-68); BILIRUBIN - TOTAL 0.36 mg/dL (0.2-1.3); CALCIUM 7.3 mg/dL (8.5-10.1); CARBON DIOXIDE 18.8 mmol/L (21.0-32.0); CREATININE - SERUM 0.5 mg/dL (0.6-1.3); POTASSIUM - SERUM 3.3 mmol/L (3.5-5.1); SODIUM 147 mmol/L (136-145); eGFR NON AFRICAN AMERICAN > 90 mL/min (90-120)
[2020-01-11 04:31] LABS: CALC OSMOLALITY 292 mosm/kg (275-300); CHLORIDE - SERUM 116 mmol/L (98-107); GLUCOSE 117 mg/dL (74-106); UREA NITROGEN 12 mg/dL (7-18)
--- NOTE | 2020-01-11 07:00 | NUR ---
PT REPORT RECEIVED FROM SPINDLE MAKER NURSE. NO ACUTE SIGNS OF DISTRESS NOTED. SHIFT ASSESSMENT COMPLETED. WILL CONTINUE TO MONITOR
--- NOTE | 2020-01-11 11:03 | NUR ---
Nutrition follow-up: Pt intubated, sedated NPO Labs reviewed Recommend staring Pulmocare @ 25 ml/hr with increase to goal rate of 40 nk/hr when medically feasible. RDN following.
--- NOTE | 2020-01-11 11:30 | EC ---
PATIENT:STEVE DORAN DATE OF SERVICE: 01/08/20 SEX: F MEDICAL RECORD: [id number] DATE OF : 67 LOCATION:[facility] AGE OF PATIENT: 54 ADMISSION DATE: 01/08/20 REFERRING PHYSICIAN: INTERPRETING PHYSICIAN: MAME ESTRADA MD ECHOCARDIOGRAM REPORT ECHO CHARGES 5 ECHO LIMITED Date: 01/09/20 CLINICAL DIAGNOSIS: ELEVATED TROP ECHOCARDIOGRAPHIC MEASUREMENTS (adult normal given) AC root (d.<3.7cm) 0 cm LV Septum d (<1.2 cm> 0 cm Valve Excursion 0 cm LV Septum (systole) 0 cm Left Atria (s.<4.0cm> 0 cm LVPW d(<1.2cm) 0 cm RV (d.<2.3cm) 0 cm LVPW (sytole) 0 cm LV diastole(<5.6CM) 0 cm MV E-F(>70mm/sec) 0 cm LV systole 0 cm LVOT Diameter 0 cm MV exc.(>10mm) 0 cm Est.ejection fraction (50-75%) % DOPPLER: LVIT cm/sec A 0 cm/sec E 0 cm/sec LA 0 cm/sec RVSP 14.4 mmHg LVOT 0 cm/sec AOP1/2T m/s Asc. Ao 0 cm/sec RVOT 0 cm/sec RA 0 cm/sec PA 0 cm/sec AV Gradient Peak 0 mmHg AV Mean 0 mmHg AV Area 0 cm MV Gradient Peak 0 mmHg MV Mean mmHg MV Area cm COMMENTS: Bench Tool Maker: Kristi MORROW Billing Specialist: 3 Dr. Paul TAPE# PACS Pericardial Effusion N DATE OF SERVICE: 01/10/2020 This is a limited study includes 2D, color flow. Grossly no LVH. LV internal dimensions appeared normal. Difficult to fully assess focal wall motion due to body habitus; however, LV function appears to be normal at 50%. Aortic valve has good valve excursion. Left atrium grossly appears normal. Mitral valve shows trivial MR. Right-sided chambers are grossly normal. Trivial TR. ECHOCARDIOGRAM REPORT [id number] STEVE DORAN TRANSINT:[id number] Voice Confirmation ID: [id number] DOCUMENT ID: [id number] MAME ESTRADA MD at 1130 CC: [id number] DICTATION DATE: 01/10/20824 BISQUE WARE DIPPER: 01/10/20 1146 ADM IN [facility] [address] [facility], [facility]
--- NOTE | 2020-01-11 14:46 | NUR ---
DR HAAS IN ROOM. PERFORMING BRONCH. WILL CONTINUE TO MONITOR
--- NOTE | 2020-01-11 16:00 | NUR ---
BLOOD INFUSING ON PT. HOLDING MEDS UNTIL BLOOD FINISHED.
--- NOTE | 2020-01-11 16:16 | NUR ---
RT PULLED ETT BACK 2CM. NOW AT 21 AT THE LIP.
--- NOTE | 2020-01-11 16:17 | NUR ---
PULLED ET TUBE BACK TO 21CM AT THE LIP PER DR HAAS
[2020-01-12] VITALS (24 sets, daily range): BP systolic 103–128; BP diastolic 78–90
--- NOTE | 2020-01-12 03:45 | NUR ---
2020- STARTED 1 UNIT OF PRBC. 2058- OGT PLACED. 2 NURSES VERIFY, 2114-XRAY IN ROOM TO CONFIRM PLACEMENT. 2151- PLACEMENT WAS CONFIRMED. K+ GIVEN FOR PROTOCOL. 0330- PULMOCARE STARTED AT 10ML/HR PER DR. HAAS'S ORDERS.
--- NOTE | 2020-01-12 03:48 | NUR ---
2105- SPOKE WITH TONG DORAN TO GIVE UPDATE.
[2020-01-12 05:44] LABS: BASOPHILS 0.1 % (0-2); EOSINOPHILS 0 % (0-7); HEMATOCRIT 34.1 % (36.0-48.0); HEMOGLOBIN 11.3 g/dL (12-16); IMMATURE GRANULOCYTES 0.3 % (0-5); LYMPHOCYTES 6.3 % (15-50); MCH 31.2 pg (26.0-34.0); MCHC 33.1 g/dL (31.0-37.0); MCV 94.2 fL (80.0-100.0); MEAN PLATELET VOLUME 9.3 fL (7.4-10.4); MONOCYTES 3.6 % (2-11); NEUTROPHILS 89.7 % (40-80); PLATELET COUNT 165 10x3/uL (130-400); RBC 3.62 10x6/uL (4.00-5.40); RDW 15.2 % (11.5-14.5)
[2020-01-12 05:55] LABS: ALBUMIN 1.3 g/dL (3.4-5.0); ALKALINE PHOSPHATASE 83 U/L (30-120); ALT (SGPT) 19 U/L (10-68); BILIRUBIN - TOTAL 0.46 mg/dL (0.2-1.3); CALC OSMOLALITY 295 mosm/kg (275-300); CALCIUM 7.7 mg/dL (8.5-10.1); CARBON DIOXIDE 22.4 mmol/L (21.0-32.0); CREATININE - SERUM 0.5 mg/dL (0.6-1.3); GLUCOSE 145 mg/dL (74-106); POTASSIUM - SERUM 3.5 mmol/L (3.5-5.1); PROTEIN - SERUM 5.5 g/dL (6.4-8.2); SODIUM 148 mmol/L (136-145); UREA NITROGEN 11 mg/dL (7-18); eGFR NON AFRICAN AMERICAN > 90 mL/min (90-120)
[2020-01-12 06:00] LABS: CHLORIDE - SERUM 116 mmol/L (98-107)
--- NOTE | 2020-01-12 08:24 | NUR ---
OGT RESIDUALS NOTED 30ML.
--- NOTE | 2020-01-12 10:10 | NUR ---
DR FAITH NOTIFIED THAT DURING AM ASSESSMENT NOTED PT SQUEEZED LT HAND AND MOVED LT FOOT, BUT NO MOVEMENT TO RT HAND OR RT LEG. DR FAITH STATED THAT SHE NOTICED THE SAME THING ON ADMISSION, AND STATED THAT WHEN DR CARREON ROUNDS TO NOTIFY HIM THEN, SHE STATED THAT WILL POSSIBLY DO MRI AFTER PT IS EXTUBATED. VSS. WILL CONTINUE PLAN OF CARE.
--- NOTE | 2020-01-12 11:07 | NUR ---
DR CARREON NOTIFIED OF RT SIDED LETHARGY. STATED THIS IS NOT UNEXPECTED. NO NEW ORDERS RECIEVED.
--- NOTE | 2020-01-12 12:20 | NUR ---
PER DR HAAS, SINCE PT IS NOT ON ANY SEDATION THEN START DIPROVAN.
--- NOTE | 2020-01-12 13:11 | NUR ---
SPOKE WITH PTS MOTHER. UPDATES PROVIDED.
--- NOTE | 2020-01-12 17:00 | NUR ---
SPOKE WITH PTS FAMILY. UPDATES PROVIDED.
--- NOTE | 2020-01-12 18:41 | NUR ---
TOTAL LINEN CHANGE PROVIDED. INCONTINENT BOWEL MOVEMENT NOTED. TURNED Q2H, ORAL CARE PROVIDED Q2H. WILL CONTINUE PLAN OF CARE.
--- NOTE | 2020-01-12 22:52 | NUR ---
2100- RESIDUAL OF OGT WAS 40 ML. INCREASED TUBE FEEDING TO 30ML/HR. MOTHER CALLED, UPDATE GIVEN.
[2020-01-13] VITALS (24 sets, daily range): BP systolic 88–129; BP diastolic 67–107
[2020-01-13 06:13] LABS: BASOPHILS 0 % (0-2); EOSINOPHILS 0 % (0-7); HEMATOCRIT 32.6 % (36.0-48.0); HEMOGLOBIN 10.4 g/dL (12-16); IMMATURE GRANULOCYTES 0.2 % (0-5); LYMPHOCYTES 7.5 % (15-50); MCH 30.4 pg (26.0-34.0); MCHC 31.9 g/dL (31.0-37.0); MCV 95.3 fL (80.0-100.0); MEAN PLATELET VOLUME 9.4 fL (7.4-10.4); MONOCYTES 3.2 % (2-11); NEUTROPHILS 89.1 % (40-80); PLATELET COUNT 179 10x3/uL (130-400); RBC 3.42 10x6/uL (4.00-5.40); RDW 15.4 % (11.5-14.5); WBC 12.1 10x3/uL (4.8-10.8)
[2020-01-13 06:41] LABS: ALBUMIN 1.2 g/dL (3.4-5.0); ALKALINE PHOSPHATASE 94 U/L (30-120); ALT (SGPT) 16 U/L (10-68); BILIRUBIN - TOTAL 0.23 mg/dL (0.2-1.3); CALC OSMOLALITY 296 mosm/kg (275-300); CALCIUM 7.1 mg/dL (8.5-10.1); CARBON DIOXIDE 23.4 mmol/L (21.0-32.0); CREATININE - SERUM 0.4 mg/dL (0.6-1.3); GLUCOSE 165 mg/dL (74-106); MAGNESIUM - SERUM 1.4 mg/dL (1.8-2.4); PHOSPHOROUS 2.8 mg/dL (2.5-4.9); POTASSIUM - SERUM 3.8 mmol/L (3.5-5.1); PROTEIN - SERUM 5.1 g/dL (6.4-8.2); SODIUM 148 mmol/L (136-145); UREA NITROGEN 10 mg/dL (7-18); eGFR NON AFRICAN AMERICAN > 90 mL/min (90-120)
[2020-01-13 06:42] LABS: CHLORIDE - SERUM 117 mmol/L (98-107)
--- NOTE | 2020-01-13 07:49 | NUR ---
LYING IN BED ON VENT AT THIS TIME. DIPROVAN TITRATED TO ORDER, SEE IV FLOWSHEET. ORAL CARE PROVIDED IS PROVIDED Q2H, PT NOTED TO BITE ON ETT DURING SUCTIONING. SQUEEZES LT HAND WHEN ASKED. VSS. WILL CONTINUE PLAN OF CARE.
[2020-01-13 11:08] LABS: ACID FAST SMEAR Negative (()); AFB SPECIMEN PROCESSING Concentration (())
--- NOTE | 2020-01-13 11:34 | NUR ---
OGT RESIDUALS NOTED AT 20ML.
--- NOTE | 2020-01-13 12:07 | NUR ---
SPOKE WITH PTS FAMILY. UPDATES PROVIDED.
--- NOTE | 2020-01-13 16:47 | NUR ---
INCONTINENT BOWEL MOVEMENT NOTED AT THIS TIME. TOTAL LINEN CHANGE PROVIDED. CHG BATH PROVIDED WITH SIDDIQUI CARE. VSS. NO ACUTE DISTRESS NOTED. WILL CONTINUE PLAN OF CARE.
--- NOTE | 2020-01-13 16:53 | NUR ---
NOTED ORAL SECRETIONS TO HAD TUBE FEED APPEARANCE. TUBE FEEDS TURNED OFF, KUB ORDERED TO ASSESS OGT PLACEMENT.
[2020-01-14] VITALS (41 sets, daily range): BP systolic 80–130; BP diastolic 53–90
[2020-01-14 04:38] LABS: BASOPHILS 0 % (0-2); EOSINOPHILS 0 % (0-7); HEMATOCRIT 30.3 % (36.0-48.0); HEMOGLOBIN 9.7 g/dL (12-16); IMMATURE GRANULOCYTES 0.5 % (0-5); MCH 30.7 pg (26.0-34.0); MCV 95.9 fL (80.0-100.0); MEAN PLATELET VOLUME 8.9 fL (7.4-10.4); MONOCYTES 3.2 % (2-11); NEUTROPHILS 86.3 % (40-80); PLATELET COUNT 176 10x3/uL (130-400); RBC 3.16 10x6/uL (4.00-5.40); RDW 15.3 % (11.5-14.5)
[2020-01-14 05:06] LABS: ALBUMIN 1.1 g/dL (3.4-5.0); ALKALINE PHOSPHATASE 70 U/L (30-120); ALT (SGPT) 13 U/L (10-68); BILIRUBIN - TOTAL 0.13 mg/dL (0.2-1.3); CALCIUM 7.1 mg/dL (8.5-10.1); CARBON DIOXIDE 24.4 mmol/L (21.0-32.0); CHLORIDE - SERUM 114 mmol/L (98-107); CREATININE - SERUM 0.4 mg/dL (0.6-1.3); MAGNESIUM - SERUM 1.4 mg/dL (1.8-2.4); PHOSPHOROUS 2.2 mg/dL (2.5-4.9); PROTEIN - SERUM 4.8 g/dL (6.4-8.2); SODIUM 146 mmol/L (136-145); UREA NITROGEN 9 mg/dL (7-18); eGFR NON AFRICAN AMERICAN > 90 mL/min (90-120)
[2020-01-14 05:09] LABS: WBC 8.5 10x3/uL (4.8-10.8)
[2020-01-14 05:22] LABS: CALC OSMOLALITY 290 mosm/kg (275-300); GLUCOSE 114 mg/dL (74-106)
[2020-01-14 05:23] LABS: POTASSIUM - SERUM 2.6 mmol/L (3.5-5.1)
--- NOTE | 2020-01-14 09:56 | NUR ---
Nutrition follow-up: Pt intubated, sedated TF off at this time. KUB reveals feeding tube in correct position Labs reviewed H2O flushes started 2/2 elevarted Na. Recommend K rider 2/2 low K. Ordered Pulmocare to restart @ 20 ml/hr with increase to goal rate of 40 ml/hr with 25 ml H2O flush q hour. RDN following.
[2020-01-14 14:09] LABS: FUNGUS STAIN Final report (())
--- NOTE | 2020-01-14 15:09 | NUR ---
MRS TRAN AND MR DORAN CALLED AND UPDATED.
--- NOTE | 2020-01-14 18:23 | NUR ---
BP IN THE 70S SYSTOLIC. LEVOPHED STARTED AT 3 MCG.
--- NOTE | 2020-01-14 18:48 | NUR ---
KCL 20 MEQ INFUSING.
[2020-01-15] VITALS (30 sets, daily range): BP systolic 76–136; BP diastolic 51–90
[2020-01-15 06:57] LABS: ALBUMIN 1.1 g/dL (3.4-5.0); ALKALINE PHOSPHATASE 75 U/L (30-120); ALT (SGPT) 11 U/L (10-68); BILIRUBIN - TOTAL 0.22 mg/dL (0.2-1.3); CALC OSMOLALITY 289 mosm/kg (275-300); CALCIUM 7.1 mg/dL (8.5-10.1); CARBON DIOXIDE 25.5 mmol/L (21.0-32.0); CHLORIDE - SERUM 113 mmol/L (98-107); CREATININE - SERUM 0.4 mg/dL (0.6-1.3); GLUCOSE 125 mg/dL (74-106); POTASSIUM - SERUM 3.2 mmol/L (3.5-5.1); PROTEIN - SERUM 4.9 g/dL (6.4-8.2); SODIUM 146 mmol/L (136-145); UREA NITROGEN 8 mg/dL (7-18); eGFR NON AFRICAN AMERICAN > 90 mL/min (90-120)
[2020-01-16] VITALS (19 sets, daily range): BP systolic 95–117; BP diastolic 70–84
--- NOTE | 2020-01-16 08:05 | NUR ---
DR GAN AT BEDSIDE. VERBAL ORDERS TO PAUSE PROPOFOL GTT AT THIS TIME IN HOPES TO EXTUBATE PATIENT LATER THIS AFTERNOON.
--- NOTE | 2020-01-16 08:43 | NUR ---
PS TRIAL 03/10
--- NOTE | 2020-01-16 11:15 | NUR ---
RT AT BEDSIDE FOR EXTUBATION. PLACED ON 2L NC. WILL YAQUELINLEY MONITOR.
--- NOTE | 2020-01-16 12:38 | NUR ---
Nutrition follow-up: Intubated, sedation off with possible extubation today Pulmocare @ 10 ml/hr Labs reviewed Wt: 154# RDN following.
--- NOTE | 2020-01-16 14:20 | NUR ---
PATIENT INCONT OF STOOL. CHG BATH AND FULL LINEN CHANGE COMPLETE.
--- NOTE | 2020-01-16 15:26 | NUR ---
RECEIVED REPORT FROM LILIA CAMPBELL. PT EXTUBATED THIS MORNING AT 1115. PT IS TRYING TO COMMUNICATE BUT UNABLE TO VERBALLY NEEDS. PT HAS SIDDIQUI CATHETER. PT HAS RT PORT 1/2 NS AT 50. NO S/SX OF DISTRESS, ASSUME PT CARE
--- NOTE | 2020-01-16 20:00 | NUR ---
PT DAUGHTER CALLED TO CHECK IN. PT RESTING COMFORTABLY AT THIS TIME. NO S/S OF DISTRESS. VS STABLE. RR EVEN UNLABORED. BED LOW CALL LIGHT WITHIN REACH. WILL CONTINUE TO MONITOR.
[2020-01-17] VITALS (21 sets, daily range): BP systolic 97–116; BP diastolic 60–84
[2020-01-17 06:31] LABS: BASOPHILS 0.1 % (0-2); EOSINOPHILS 0.4 % (0-7); HEMATOCRIT 31.5 % (36.0-48.0); HEMOGLOBIN 10.3 g/dL (12-16); IMMATURE GRANULOCYTES 0.5 % (0-5); LYMPHOCYTES 13.6 % (15-50); MCHC 32.7 g/dL (31.0-37.0); MCV 94.9 fL (80.0-100.0); MEAN PLATELET VOLUME 9.2 fL (7.4-10.4); MONOCYTES 3.5 % (2-11); NEUTROPHILS 81.9 % (40-80); PLATELET COUNT 260 10x3/uL (130-400); RBC 3.32 10x6/uL (4.00-5.40); WBC 9.8 10x3/uL (4.8-10.8)
[2020-01-17 07:00] LABS: ALBUMIN 1.1 g/dL (3.4-5.0); ALKALINE PHOSPHATASE 68 U/L (30-120); ALT (SGPT) 16 U/L (10-68); CALCIUM 7.4 mg/dL (8.5-10.1); CARBON DIOXIDE 26.7 mmol/L (21.0-32.0); CHLORIDE - SERUM 111 mmol/L (98-107); CREATININE - SERUM 0.2 mg/dL (0.6-1.3); PROTEIN - SERUM 5.1 g/dL (6.4-8.2); SODIUM 145 mmol/L (136-145); UREA NITROGEN 6 mg/dL (7-18); eGFR NON AFRICAN AMERICAN > 90 mL/min (90-120)
[2020-01-17 07:15] LABS: CALC OSMOLALITY 284 mosm/kg (275-300)
[2020-01-17 07:18] LABS: GLUCOSE 65 mg/dL (74-106); POTASSIUM - SERUM 2.6 mmol/L (3.5-5.1)
[2020-01-18] VITALS (11 sets, daily range): BP systolic 90–134; BP diastolic 67–79
--- NOTE | 2020-01-18 03:36 | NUR ---
POTASSIUM WAS 3.1 . ELECTROLYTE REPLACEMENT PROTOCOL STARTED KCL 20mEq/100/ml IV X 2. (#1 DOSE INFUSING).
[2020-01-18 05:47] LABS: BASOPHILS 0.1 % (0-2); EOSINOPHILS 0.1 % (0-7); HEMATOCRIT 31.9 % (36.0-48.0); HEMOGLOBIN 10.6 g/dL (12-16); IMMATURE GRANULOCYTES 0.6 % (0-5); LYMPHOCYTES 10.5 % (15-50); MCH 31.9 pg (26.0-34.0); MCHC 33.2 g/dL (31.0-37.0); MCV 96.1 fL (80.0-100.0); MEAN PLATELET VOLUME 9.1 fL (7.4-10.4); MONOCYTES 4.4 % (2-11); NEUTROPHILS 84.3 % (40-80); PLATELET COUNT 282 10x3/uL (130-400); RBC 3.32 10x6/uL (4.00-5.40); RDW 14.9 % (11.5-14.5); WBC 8.7 10x3/uL (4.8-10.8)
[2020-01-18 06:49] LABS: ALBUMIN 1.1 g/dL (3.4-5.0); ALKALINE PHOSPHATASE 70 U/L (30-120); ALT (SGPT) 15 U/L (10-68); BILIRUBIN - TOTAL 0.16 mg/dL (0.2-1.3); CALCIUM 7.6 mg/dL (8.5-10.1); CARBON DIOXIDE 23.4 mmol/L (21.0-32.0); CHLORIDE - SERUM 107 mmol/L (98-107); POTASSIUM - SERUM 3.3 mmol/L (3.5-5.1); PROTEIN - SERUM 5.3 g/dL (6.4-8.2); SODIUM 140 mmol/L (136-145); UREA NITROGEN 5 mg/dL (7-18)
[2020-01-18 06:50] LABS: CALC OSMOLALITY 273 mosm/kg (275-300); CREATININE - SERUM 0.3 mg/dL (0.6-1.3); GLUCOSE 62 mg/dL (74-106); eGFR NON AFRICAN AMERICAN > 90 mL/min (90-120)
--- NOTE | 2020-01-18 07:10 | NUR ---
RE;PORT RECEIVED FROMNIGHT SHIFT AND PATIENT CARE ASSUMED.PATIENT LAYING IN BED ON BACK WITH EYES CLOSED AND BREATHING EVENLY. VSS. BP 103/70 R 15, T 98.9, O2 100% ON RA. WILL CONTINUE WITH PLAN OF CARE. SR UP X 2 BED IN LOW POSITION AND CALL LIGHT IN REACH.
--- NOTE | 2020-01-18 10:09 | NUR ---
NUTRITION F/U PT REMAINS EXTUBATED. PT HAS ORDERS TO TRANSFER TO [facility] 2. RESULTS OF SPEECH EVAL NOTED. RECOMMEND STARTING TUBE FEEDS OR PROCALAMINE AND LIPIDS UNTIL PT CAN TOLERATE PO INTAKE. RD FOLLOWING
--- NOTE | 2020-01-18 10:30 | NUR ---
PATIENTG IS STABLE AND VSS. PATIENT HAD BATH EARLIER AND SIDDIQUI DCD. ORDER RECEIVED FOR TRANSFER TO ROOM 2138. CALLED REPORT TO SHANNAN MCCONNELL. ALSO INFORMED THAT NEW ORDER HAS JUST BEEN PUT IN FOR NGT TUBE AND PULMOCARE TO BEGIN. PER CHARGE NURSE SHANNAN SPRINGER, NGT PLACEMENT TO DONE AFTER PATIENT TRANSFERRED DUE TO NEED TO HAVE ROOM STAT CLEANED AND ER PATIENT MOVED IN.
--- NOTE | 2020-01-18 11:20 | NUR ---
RECEIVED PT FROM ICU. PT IS AA AND CONFUSED. PT IS BEDFAST. NO S/S OF DISTRESS NOTED. NPO STATUS. R.INFUSAPORT WITH CARDIZEM AND KEPPRA INFUSING. SIDDIQUI IN PLACE AND DRAINING URINE. PT DENIES ANY NEEDS. WILL CTM. AND CONTINUE WITH POC.
--- NOTE | 2020-01-18 12:51 | NUR ---
OT NOTE: PT COMPLETED RUE PROM TOLERATED. PT COMPLETED LUE AAROM TOLERATED. PT REQUIRED TOTAL A WITH RUE POSITIONING TO DECREASE EDEMA AND PREVENT SKIN BREAKDOWN. PT REQUIRED MAX A WITH FACE HYGIENE. 1135-12 THANK YOU,JUANCARLOS DURBIN
--- NOTE | 2020-01-18 14:29 | NUR ---
OT NOTE: PT ASLEEP BUT EASILY AROUSED. REMAINS UNABLE TO AUDIBLY VERBALIZE. NO ACTIVE MOVEMENT FOR R UE.. LIMITED ACTIVE MOVEMENT ON L SIDE DUE TO SEVERE WEAKNESS. ATTEMPTS TO FOLLOW 1 STEP COMMANDS. EXTENSIVE ASSIST FOR ALL ADLS AND MOBILITY. CONT TMT PLAN. LOIDA ESPINOZA, OTR/L [phone]
--- NOTE | 2020-01-18 17:08 | NUR ---
ATTEMPTED NG INSERTION TWICE BUT FAILED. THE NG TUBE WOULD NOT PASS THROUGH THE NASOPHARNYX. ATTEMPTED TO INSTRUCT PT TO TILT HEAD AND SWALLOW BUT WAS UNSUCCESSFUL IN FOLLOWING COMMANDS. NOTIFIED CHARGE NURSE AND CALLED ICU TO ATTEMPT. WILL CTM.
--- NOTE | 2020-01-18 17:28 | NUR ---
NG TUBE PLACED PER [facility] ER. VERIFIED WITH AUSCULTATION. STAT XRAY ORDERED. WILL START TUBE FEED ONCE VERIFIED.
--- NOTE | 2020-01-18 20:10 | NUR ---
PATIENT IS RESTING IN BED. HER RIGHT ARM IS FLACCID. I WENT IN TO ACCESS HER, AND SHE HAD PULLED OUT HER NG TUBE. I CAN NOT UNDERSTAND HE SPEECH. UNABLE TO ASSESS IF SHE IS ORIENTATED.
[2020-01-19 00:45] VITALS: BP 126/66
--- NOTE | 2020-01-19 03:17 | NUR ---
PATIENT IS SLEEPING BED. HER SPEECH IS GARBLED. SHE CANNOT SAY YES OR NO. I TALKED TO THE CHARGE NURSE. SHE SAID I SHOULD NOT PUT IT BACK IN, BECAUSE SHE WILL JUST PULL IT OUT AGAIN, SINCE SHE IS CONFUSED. SO WE ARE GOING WITH THAT RECOMMENDATION OF NOT PUTTING NG BACK IN.
[2020-01-19 04:45] VITALS: BP 121/61
[2020-01-19 09:00] VITALS: BP 97/73
--- NOTE | 2020-01-19 12:57 | NUR ---
PATIENT IN BED RESTING. DENIES NEEDS OR PAIN. BED LOW POSITION, CALL LIGHT IN REACH, BEDSIDE TABLE IN REACH. IV INFUSING PER MAR. WILL CONTINUE TO MONITOR.
[2020-01-19 18:53] LABS: CARBON DIOXIDE 24.6 mmol/L (21.0-32.0); CHLORIDE - SERUM 106 mmol/L (98-107); POTASSIUM - SERUM 3.5 mmol/L (3.5-5.1); SODIUM 141 mmol/L (136-145); UREA NITROGEN 4 mg/dL (7-18)
[2020-01-19 18:55] LABS: CALC OSMOLALITY 275 mosm/kg (275-300); CREATININE - SERUM 0.2 mg/dL (0.6-1.3); eGFR NON AFRICAN AMERICAN > 90 mL/min (90-120)
[2020-01-19 18:57] LABS: GLUCOSE 68 mg/dL (74-106)
--- NOTE | 2020-01-20 01:45 | NUR ---
NG TUBE 16 COMORAN PLACED, LEFT NOSTRIL TO SECOND BRAVO, VERIFIED PLACEMENT VIA AIR AUSCULTATION. PT TOLERATED FAIR, FEEDINGS INITIATED AT 20 ML/HR WITH 25 ML H20 FLUSH Q1H. WILL CTM.
[2020-01-20 02:00] VITALS: BP 91/66
[2020-01-20 09:00] VITALS: BP 100/62
[2020-01-20 09:52] LABS: BASOPHILS 0 % (0-2); EOSINOPHILS 0.3 % (0-7); HEMOGLOBIN 10.6 g/dL (12-16); IMMATURE GRANULOCYTES 0.9 % (0-5); MCH 30.7 pg (26.0-34.0); MCHC 32.1 g/dL (31.0-37.0); MCV 95.7 fL (80.0-100.0); MEAN PLATELET VOLUME 8.6 fL (7.4-10.4); MONOCYTES 7.4 % (2-11); NEUTROPHILS 76.4 % (40-80); PLATELET COUNT 289 10x3/uL (130-400); RBC 3.45 10x6/uL (4.00-5.40); RDW 14.7 % (11.5-14.5); WBC 7.9 10x3/uL (4.8-10.8)
[2020-01-20 10:20] LABS: CALC OSMOLALITY 274 mosm/kg (275-300); CALCIUM 7.5 mg/dL (8.5-10.1); CARBON DIOXIDE 23.3 mmol/L (21.0-32.0); CHLORIDE - SERUM 104 mmol/L (98-107); CREATININE - SERUM 0.4 mg/dL (0.6-1.3); GLUCOSE 97 mg/dL (74-106); MAGNESIUM - SERUM 1.4 mg/dL (1.8-2.4); PHOSPHOROUS 2.4 mg/dL (2.5-4.9); SODIUM 139 mmol/L (136-145); UREA NITROGEN 5 mg/dL (7-18); eGFR NON AFRICAN AMERICAN > 90 mL/min (90-120)
[2020-01-20 10:23] LABS: POTASSIUM - SERUM 2.6 mmol/L (3.5-5.1)
--- NOTE | 2020-01-20 12:49 | NUR ---
OT NOTE: PT EASILY AROUSED. NO ATTEMPTS TO VERBALIZE TODAY. SHE WAS ABLE TO FOLLOW MOST SIMPLE COMMANDS. PROVIDED A/AROM TO L UE..INCREASED TWISTER IN STRENGTH NOTED TODAY. PROM TO B LES AND R UE. ATTEMPTED RETROGRADE MASSAGE TO R HAND AND ELEVATED ON SEVERAL PILLOWS AND BLANKETS TO ASSIST WITH EDEMA SHE HAS NOT ACTIVE MOVEMENT ON R SIDE. STILL UNSURE IF THIS WAS HER PRIOR LEVEL. LOIDA ESPINOZA, OTR/L [phone]
[2020-01-20 16:00] VITALS: BP 104/67
[2020-01-20 20:15] VITALS: BP 100/63
[2020-01-21 00:30] VITALS: BP 103/61
--- NOTE | 2020-01-21 03:10 | NUR ---
NG TUBE FOUND IN BED, PT APHASIC/UNABLE TO EXPLAIN WHAT HAPPENED, LUNG SOUNDS CLEAR ALL LOBES TO AUSCULTATION. LINENS CHANGED, PT CLEANED AND POSITIONED FOR COMFORT. WILL CTM.
[2020-01-21 04:30] VITALS: BP 114/67
[2020-01-21 06:16] LABS: BASOPHILS 0.1 % (0-2); EOSINOPHILS 0.5 % (0-7); HEMATOCRIT 31.3 % (36.0-48.0); HEMOGLOBIN 9.9 g/dL (12-16); IMMATURE GRANULOCYTES 1.3 % (0-5); LYMPHOCYTES 14.6 % (15-50); MCHC 31.6 g/dL (31.0-37.0); MCV 94.8 fL (80.0-100.0); MEAN PLATELET VOLUME 8.5 fL (7.4-10.4); NEUTROPHILS 77.5 % (40-80); PLATELET COUNT 299 10x3/uL (130-400); RDW 14.6 % (11.5-14.5); WBC 7.7 10x3/uL (4.8-10.8)
[2020-01-21 06:49] LABS: CALC OSMOLALITY 271 mosm/kg (275-300); CALCIUM 7.3 mg/dL (8.5-10.1); CHLORIDE - SERUM 105 mmol/L (98-107); CREATININE - SERUM 0.3 mg/dL (0.6-1.3); GLUCOSE 79 mg/dL (74-106); MAGNESIUM - SERUM 1.3 mg/dL (1.8-2.4); PHOSPHOROUS 2.3 mg/dL (2.5-4.9); SODIUM 138 mmol/L (136-145); UREA NITROGEN 4 mg/dL (7-18); eGFR NON AFRICAN AMERICAN > 90 mL/min (90-120)
[2020-01-21 07:29] LABS: CARBON DIOXIDE 29.2 mmol/L (21.0-32.0); POTASSIUM - SERUM 2.6 mmol/L (3.5-5.1)
--- NOTE | 2020-01-21 08:00 | NUR ---
RESTING IN BED. LINENS SOILED. LINEN CHANGE COMPLETE. INITIATE ELECTROLYTE PROTOCOL PER ORDER.
[2020-01-21 10:22] VITALS: BP 113/68
[2020-01-21 13:06] VITALS: BP 112/64
[2020-01-21 13:10] LABS: FUNGUS CULTURE RESULT 1 Candida albicans (()); FUNGUS MYCOLOGY CULTURE Preliminary report (())
--- NOTE | 2020-01-21 14:09 | NUR ---
Nutrition Follow-up: Nursing reports pt continues to pull NGT out. Receiving no nutrition support. LEASING ASSISTANT following; recs NPO with PEG vs NGT. Per MD note, plans for discussion re: PEG vs hospice. Wt: 169# (01/17) Labs noted: K+ 2.6, Ca 7.3, PO4 2.3, Mg 1.3 Meds noted: Protonix, electrolyte protocol -Rec Jevity 1.2 @ goal rate of 55 mL/hr + H2O flushes 25 mL q hr. -Need new wt; noted daily wts ordered. -RD following.
--- NOTE | 2020-01-21 14:29 | MORECARE ---
CASE MANAGEMENT DISCHARGE SUMMARY PATIENT: STEVE DORAN UNIT: [id number] ADM DATE: 01/08/20 AGE: 54 : 67 SEX: F ROOM/BED: D.2139 AUTHOR: BRYANNA DICKSON PHYSICIAN: REFERRING PHYSICIAN: MAME JUNG MD DATE OF SERVICE: 01/21/20 Discharge Plan Patient Name: STEVE DORAN [facility] [facility] 1965 Planned Disposition: Anticipated Discharge Date: Discharge Date: Expected LOS: Initial Reviewer: [email or web address] Initial Review Date: 01/08/2020 Generated: 01/21/20 3:28 pm Patient Name: STEVE DORAN Page [phone] at 1429 All edits/amendments must be made on the electronic document DICTATION DATE: 01/21/20 1428 YOGHURT MAKER: GENE 01/21/20 1428 RPT#: [id number] DC DATE: STATUS: ADM IN [facility] [address] [place] [address] END OF REPORT
--- NOTE | 2020-01-21 14:40 | MORECARE ---
CASE MANAGEMENT DISCHARGE SUMMARY PATIENT: STEVE DORAN UNIT: [id number] ADM DATE: 01/08/20 AGE: 54 : 67 SEX: F ROOM/BED: D.2132 AUTHOR: RANDOLPHDOC PHYSICIAN: REFERRING PHYSICIAN: MAME JUNG MD DATE OF SERVICE: 01/21/20 Discharge Plan Patient Name: STEVE DORAN Facility: [facility]:[place] : 1965 Planned Disposition: Anticipated Discharge Date: Discharge Date: Expected LOS: Initial Reviewer: [email or web address] Initial Review Date: 01/08/2020 Generated: 01/21/20 3:39 pm Comments DCP- Discharge Planning Updated by [email or web address]: Ewa Nguyen on 01/21/20 1:[address] Patient Name: STEVE DORAN Admission Status: ER Accout number: [id number] Admission Date: 01-08-2020 : 1965 Admission Diagnosis:EPILEPSY, UNSPECIFIED, INTRACTABLE, WITH STATUS EPILEPT Attending: DENY Current LOS: 13 Anticipated DC Date: Planned Disposition: Primary Insurance: HUMANA CHOICE O [facility] Discharge Planning Comments: CM spoke to pt Elieser at [phone] over phone to discuss dc planning. CM educated Elieser on the CM role and verbal consent given to complete assessment. Patient lives at home with Elieser. DC disposition is unknown at this time per Elieser. CM educated Elieser that the pt will need 24 hour care at dc. Cj states he is unsure if he can provide that care. States pt sister will be arriving at 3 pm today and they will discuss home vs long-term placement. CM will continue to follow and will assist as needed with dc plans/needs. Pre Owned Sales Consultant: Ewa Nguyen DCPIA - Discharge Planning Initial Assessment Updated by [email or web address]: Ewa Nguyen on 01/21/20 2:29 pm * Is the patient Alert and Oriented? No * PCP [facility] IN [place]. UNWARE OF NAME * [facility]acy [facility] ([place]) * Preadmission Environment Home with Family * Equipment Rolling Walker * List name and contact numbers for known caregivers / representatives who currently or will assist patient after discharge: ELIESER DORAN [phone] * Verbal permission to speak to the caregivers and representatives has been obtained from the patient. Yes * Additional services required to return to the preadmission environment? Yes * Can the patient safely return to the preadmission environment? No * Has this patient been hospitalized within the prior 30 days at any hospital? No Last DP export: 01/21/20 1:29 p Patient Name: STEVE DORAN Page [phone] at 1440 All edits/amendments must be made on the electronic document DICTATION DATE: 01/21/20 143 LEVEL VIAL INSPECTOR: GENE 01/21/20 143 RPT#: [id number] DC DATE: STATUS: ADM IN [facility] [address] [place] [address] END OF REPORT
--- NOTE | 2020-01-21 17:19 | NUR ---
OT NOTE: PT SEEN FOLLOWING S.T. TMT. OT CONTINUED WITH COGNITIVE AND ORIENTATION QUESTIONS, HOWEVER, PT NOT APPEARING TO UNDERSTAND. PT WAS ABLE TO SQUEEZE MY HAND AND MOVE HER L ARM, HOWEVER, ANYTHING OTHER THAN THAT SHE WAS NOT ABLE TO DO.. ATTEMPTED TO HAVE HER BLINK EYES FOR YES/NO QUESTIONS, HOWEVER, UNSUCCESSFUL WITH THIS. PT CURRENTLY TOTAL ASSIST [facility] BED MOB AND ALL ADLS. PROM TO R UE/LE..A/AROM TO L UE LOIDA ESPINOZA, OTR/L [phone]
[2020-01-21 18:28] VITALS: BP 109/72
--- NOTE | 2020-01-21 19:00 | NUR ---
EVENING ROUNDS COMPLETE. PT LAYING IN BED, SISTER AT BEDSIDE. NO SIGNS OF DISTRESS. PT IS AAOX4, CAN ONLY REPLY TO YES AND NO QUESTIONS DUE TO COMMUNICATION BARRIERS. PT DENIES ANY PAIN OR NEEDS AT THIS TIME. CL IN REACH, BED IN LOWEST POSITION.
[2020-01-22] VITALS: BP 102/58
[2020-01-22 04:00] VITALS: BP 101/58
[2020-01-22 06:03] LABS: BASOPHILS 0.1 % (0-2); EOSINOPHILS 0 % (0-7); HEMATOCRIT 29.6 % (36.0-48.0); HEMOGLOBIN 9.5 g/dL (12-16); IMMATURE GRANULOCYTES 0.6 % (0-5); LYMPHOCYTES 13.2 % (15-50); MCH 30.3 pg (26.0-34.0); MCHC 32.1 g/dL (31.0-37.0); MCV 94.3 fL (80.0-100.0); MEAN PLATELET VOLUME 8.7 fL (7.4-10.4); MONOCYTES 5.3 % (2-11); NEUTROPHILS 80.8 % (40-80); PLATELET COUNT 309 10x3/uL (130-400); RBC 3.14 10x6/uL (4.00-5.40); RDW 14.9 % (11.5-14.5); WBC 7.7 10x3/uL (4.8-10.8)
[2020-01-22 06:43] LABS: CALC OSMOLALITY 282 mosm/kg (275-300); CARBON DIOXIDE 31.8 mmol/L (21.0-32.0); CHLORIDE - SERUM 105 mmol/L (98-107); GLUCOSE 81 mg/dL (74-106); MAGNESIUM - SERUM 1.5 mg/dL (1.8-2.4); PHOSPHOROUS 2.8 mg/dL (2.5-4.9); SODIUM 144 mmol/L (136-145); UREA NITROGEN 3 mg/dL (7-18)
[2020-01-22 06:48] LABS: CREATININE - SERUM 0.2 mg/dL (0.6-1.3); eGFR NON AFRICAN AMERICAN > 90 mL/min (90-120)
[2020-01-22 06:49] LABS: POTASSIUM - SERUM 2.6 mmol/L (3.5-5.1)
[2020-01-22 09:47] VITALS: BP 118/72
--- NOTE | 2020-01-22 10:26 | NUR ---
OT NOTE: (DOS 01/21/20) PT COMPLETED BUE PROM TOLERATED. PT COMPLETED RUE POSITIONING WITH TOTAL A TO DECREASE EDEMA. PT REQUIRED TOTAL A FOR UB HYGIENE. [id number] THANK YOU,JUANCARLOS DURBIN
[2020-01-22 11:36] VITALS: BP 125/81
--- NOTE | 2020-01-22 14:00 | NUR ---
PT HAD REMOVED PUREWICK AND URINATED. BED BATH RECIEVED. BACK OF HEAD HAS A SPOT THAT HAS RUBBED, HAIR MISSING AND REDNESS NOTED. PADDED MEPILEX PLACED TO SPOT. LINENS CHANGED. CALL LIGHT WITHIN REACH. WILL CONTINUE TO MONITOR.
--- NOTE | 2020-01-22 15:57 | MORECARE ---
CASE MANAGEMENT DISCHARGE SUMMARY PATIENT: STEVE DORAN UNIT: [id number] ADM DATE: 01/08/20 AGE: 54 : 67 SEX: F ROOM/BED: D.2137 AUTHOR: RANDOLPH,DOC PHYSICIAN: REFERRING PHYSICIAN: MAME JUNG MD DATE OF SERVICE: 01/22/20 Discharge Plan Patient Name: STEVE DORAN Facility: [facility]:[place] : 1965 Planned Disposition: Home Health Service Anticipated Discharge Date: Discharge Date: Expected LOS: Initial Reviewer: [email or web address] Initial Review Date: 01/08/2020 Generated: 01/22/20 4:56 pm DCP- Discharge Planning Updated by [email or web address]: Ewa Nguyen on 01/21/20 1:[address] Patient Name: STEVE DORAN Admission Status: ER Accout number: [id number] Admission Date: 01-08-2020 : 1965 Admission Diagnosis:EPILEPSY, UNSPECIFIED, INTRACTABLE, WITH STATUS EPILEPT Attending: DENY Current LOS: 13 Anticipated DC Date: Planned Disposition: Primary Insurance: HUMANA CHOICE O [facility] Discharge Planning Comments: CM spoke to pt Elieser at [phone] over phone to discuss dc planning. CM educated Elieser on the CM role and verbal consent given to complete assessment. Patient lives at home with Elieser. DC disposition is unknown at this time per Elieser. CM educated Elieser that the pt will need 24 hour care at dc. Cj states he is unsure if he can provide that care. States pt sister will be arriving at 3 pm today and they will discuss home vs long-term placement. CM will continue to follow and will assist as needed with dc plans/needs. Senior Chemist: Ewa Nguyen DCPIA - Discharge Planning Initial Assessment Updated by [email or web address]: Ewa Nguyen on 01/21/20 2:29 pm * Is the patient Alert and Oriented? No * PCP [facility] IN [place]. UNWARE OF NAME * [facility]acy [facility] ([place]) * Preadmission Environment Home with Family * Equipment Rolling Walker * List name and contact numbers for known caregivers / representatives who currently or will assist patient after discharge: ELIESER DORAN [phone] * Verbal permission to speak to the caregivers and representatives has been obtained from the patient. Yes * Additional services required to return to the preadmission environment? Yes * Can the patient safely return to the preadmission environment? No * Has this patient been hospitalized within the prior 30 days at any hospital? No Last DP export: 01/21/20 1:40 p Patient Name: STEVE DORAN Page [phone] at 1557 All edits/amendments must be made on the electronic document DICTATION DATE: 01/22/206 SHIFT ENGINEER: GENE 01/22/201555 RPT#: [id number] DC DATE: STATUS: ADM IN [facility] [address] [place] [address] END OF REPORT
--- NOTE | 2020-01-22 17:07 | NUR ---
OT NOTE: PT REMAINS UNCHANGED FAR ADLS. TOTAL ASSIST WITH ALL ADLS. CONT TO ASSIST WITH AROM IN L UE; PROM IN REMAINING 3 EXTREMETIES. FLACID R UE/LE; EXTENSIVE ASSIST WITH ALL MOBILITY AND BED MOB. [id number]
--- NOTE | 2020-01-22 17:51 | MORECARE ---
CASE MANAGEMENT DISCHARGE SUMMARY PATIENT: STEVE DORAN UNIT: [id number] ADM DATE: 01/08/20 AGE: 54 : 67 SEX: F ROOM/BED: D.2134 AUTHOR: RANDOLPH,DOC PHYSICIAN: REFERRING PHYSICIAN: MAME JUNG MD DATE OF SERVICE: 01/22/20 Discharge Plan Patient Name: STEVE DORAN Facility: [facility]:[place] : 1965 Planned Disposition: Home Health Service Anticipated Discharge Date: Discharge Date: Expected LOS: Initial Reviewer: [email or web address] Initial Review Date: 01/08/2020 Generated: 01/22/20 6:50 pm DCP- Discharge Planning Updated by [email or web address]: Ewa Nguyen on 01/21/20 1:[address] Patient Name: STEVE DORAN Admission Status: ER Accout number: [id number] Admission Date: 01-08-2020 : 1965 Admission Diagnosis:EPILEPSY, UNSPECIFIED, INTRACTABLE, WITH STATUS EPILEPT Attending: DENY Current LOS: 13 Anticipated DC Date: Planned Disposition: Primary Insurance: HUMANA CHOICE O [facility] Discharge Planning Comments: CM spoke to pt Elieser at [phone] over phone to discuss dc planning. CM educated Elieser on the CM role and verbal consent given to complete assessment. Patient lives at home with Elieser. DC disposition is unknown at this time per Elieser. CM educated Elieser that the pt will need 24 hour care at dc. Cj states he is unsure if he can provide that care. States pt sister will be arriving at 3 pm today and they will discuss home vs long-term placement. CM will continue to follow and will assist as needed with dc plans/needs. Matt[employer] Supervisor: Ewa Nguyen DCPIA - Discharge Planning Initial Assessment Updated by [email or web address]: Ewa Nguyen on 01/21/20 2:29 pm * Is the patient Alert and Oriented? No * PCP [facility] IN [place]. UNWARE OF NAME * Pharmacy [facility] ([place]) * Preadmission Environment Home with Family * Equipment Rolling Walker * List name and contact numbers for known caregivers / representatives who currently or will assist patient after discharge: ELIESER DORAN [phone] * Verbal permission to speak to the caregivers and representatives has been obtained from the patient. Yes * Additional services required to return to the preadmission environment? Yes * Can the patient safely return to the preadmission environment? No * Has this patient been hospitalized within the prior 30 days at any hospital? No Last DP export: 01/22/20 2:57 p Patient Name: STEVE DORAN Page [phone] at 1751 All edits/amendments must be made on the electronic document DICTATION DATE: 01/22/201749 AUTOMOTIVE BUYER: GENE 01/22/201749 RPT#: [id number] DC DATE: STATUS: ADM IN [facility] [address] [place] [address] END OF REPORT
--- NOTE | 2020-01-22 18:04 | MORECARE ---
CASE MANAGEMENT DISCHARGE SUMMARY PATIENT: STEVE DORAN UNIT: [id number] ADM DATE: 01/08/20 AGE: 54 : 67 SEX: F ROOM/BED: D.213 AUTHOR: RANDOLPH,DOC PHYSICIAN: REFERRING PHYSICIAN: MAME JUNG MD DATE OF SERVICE: 01/22/20 Discharge Plan Patient Name: STEVE DORAN Facility: [facility]:[place] : 1965 Planned Disposition: Home Health Service Anticipated Discharge Date: Discharge Date: Expected LOS: Initial Reviewer: [email or web address] Initial Review Date: 01/08/2020 Generated: 01/22/20 7:03 pm Comments DCP- Discharge Planning Updated by [id number]: Ewa Nguyen on 01/22/20 4:[address] CM met with pt sister at bedside. The patient sister states that she lives out of state, but the family is capable of keeping the patient at home. States the family has nurses, and nurse aides and feel that they are capable of taking 24 care of the patient at home. States they would like home health if available to help them in providing support, and additional care. CM spoke with moshe from [facility] and faxed referral for review. CM will continue to assist as needed in DC planning. Ewa Nguyen MSN,RN,CM DCP- Discharge Planning Updated by [email or web address]: Ewa Nguyen on 01/21/20 1:[address] Patient Name: STEVE DORAN Admission Status: ER Accout number: [id number] Admission Date: 01-08-2020 : 1965 Admission Diagnosis:EPILEPSY, UNSPECIFIED, INTRACTABLE, WITH STATUS EPILEPT Attending: DENY Current LOS: 13 Anticipated DC Date: Planned Disposition: Primary Insurance: HU[employer]NA CHOICE PPO MCR ADVANT Discharge Planning Comments: CM spoke to pt Elieser at [phone] over phone to discuss dc planning. CM educated Elieser on the CM role and verbal consent given to complete assessment. Patient lives at home with Elieser. DC disposition is unknown at this time per Elieser. CM educated Elieser that the pt will need 24 hour care at dc. Cj states he is unsure if he can provide that care. States pt sister will be arriving at 3 pm today and they will discuss home vs long-term placement. CM will continue to follow and will assist as needed with dc plans/needs. Director Trading: Ewa Nguyen DCPIA - Discharge Planning Initial Assessment Updated by [email or web address]: Ewa Nguyen on 01/21/20 2:29 pm * Is the patient Alert and Oriented? No * PCP ALL IN [place]. UNWARE OF NAME * [facility] ([place] * Preadmission Environment Home with Family * Equipment Rolling Walker * List name and contact numbers for known caregivers / representatives who currently or will assist patient after discharge: ELIESER DORAN [phone] * Verbal permission to speak to the caregivers and representatives has been obtained from the patient. Yes * Additional services required to return to the preadmission environment? Yes * Can the patient safely return to the preadmission environment? No * Has this patient been hospitalized within the prior 30 days at any hospital? No Last DP export: 01/22/20 4:51 p Patient Name: STEVE DORAN Page 68088 at 1804 All edits/amendments must be made on the electronic document DICTATION DATE: 01/22/201803 RIPENING ROOM ATTENDANT: GENE 01/22/201803 RPT#: [id number] DC DATE: STATUS: ADM IN [facility] [address] [place] [address] END OF REPORT
--- NOTE | 2020-01-22 18:39 | MORECARE ---
CASE MANAGEMENT DISCHARGE SUMMARY PATIENT: STEVE DORAN UNIT: [id number] ADM DATE: 01/08/20 AGE: 54 : 67 SEX: F ROOM/BED: D.2133 AUTHOR: RANDOLPH,DOC PHYSICIAN: REFERRING PHYSICIAN: MAME JUNG MD DATE OF SERVICE: 01/22/20 Discharge Plan Patient Name: STEVE DORAN Facility: [facility]:[place] : 1965 Planned Disposition: Home Health Service Anticipated Discharge Date: Discharge Date: Expected LOS: Initial Reviewer: [email or web address] Initial Review Date: 01/08/2020 Generated: 01/22/20 7:38 pm Comments DCP- Discharge Planning Updated by [id number]: Ewa Nguyen on 01/22/20 4:[address] CM met with pt sister at bedside. The patient sister states that she lives out of state, but the family is capable of keeping the patient at home. States the family has nurses, and nurse aides and feel that they are capable of taking 24 care of the patient at home. States they would like home health if available to help them in providing support, and additional care. CM spoke with moshe from [facility] and faxed referral for review. CM will continue to assist as needed in DC planning. Ewa Nguyen MSN,RN,CM DCP- Discharge Planning Updated by [email or web address]: Ewa Nguyen on 01/21/20 1:[address] Patient Name: STEVE DORAN Admission Status: ER Accout number: [id number] Admission Date: 01-08-2020 : 1965 Admission Diagnosis:EPILEPSY, UNSPECIFIED, INTRACTABLE, WITH STATUS EPILEPT Attending: DENY Current LOS: 13 Anticipated DC Date: Planned Disposition: Primary Insurance: HUMANA CHOICE PPO MCR ADVANT Discharge Planning Comments: CM spoke to pt Elieser at [phone] over phone to discuss dc planning. CM educated Elieser on the CM role and verbal consent given to complete assessment. Patient lives at home with Elieser. DC disposition is unknown at this time per Elieser. CM educated Elieser that the pt will need 24 hour care at dc. Cj states he is unsure if he can provide that care. States pt sister will be arriving at 3 pm today and they will discuss home vs long-term placement. CM will continue to follow and will assist as needed with dc plans/needs. Service Line Layer: Ewa Nguyen DCPIA - Discharge Planning Initial Assessment Updated by [email or web address]: Ewa Nguyen on 01/21/20 2:29 pm * Is the patient Alert and Oriented? No * PCP [facility] IN [place]. UNWARE OF NAME * [facility] ([place] * Preadmission Environment Home with Family * Equipment Rolling Walker * List name and contact numbers for known caregivers / representatives who currently or will assist patient after discharge: ELIESER DORAN [phone] * Verbal permission to speak to the caregivers and representatives has been obtained from the patient. Yes * Additional services required to return to the preadmission environment? Yes * Can the patient safely return to the preadmission environment? No * Has this patient been hospitalized within the prior 30 days at any hospital? No External Providers External Provider: [facility] Next Contact Date: Service Request Date: Service Type: Resolution: Reviewer: Comments: Last DP export: 01/22/20 5:04 p Patient Name: STEVE DORAN Page 44042 at 1839 All edits/amendments must be made on the electronic document DICTATION DATE: 01/22/201837 ADJUDICATION SPECIALIST: GENE 01/22/201837 RPT#: [id number] DC DATE: STATUS: ADM IN [facility] [address] [place] [address] END OF REPORT
--- NOTE | 2020-01-22 18:47 | MORECARE ---
CASE MANAGEMENT DISCHARGE SUMMARY PATIENT: STEVE DORAN UNIT: [id number] ADM DATE: 01/08/20 AGE: 54 : 67 SEX: F ROOM/BED: D.2139 AUTHOR: RANDOLPH,DOC PHYSICIAN: REFERRING PHYSICIAN: MAME JUNG MD DATE OF SERVICE: 01/22/20 Discharge Plan Patient Name: STEVE DORAN Facility: [facility]:[place] : 1965 Planned Disposition: Home Health Service Anticipated Discharge Date: Discharge Date: Expected LOS: Initial Reviewer: [email or web address] Initial Review Date: 01/08/2020 Generated: 01/22/20 7:47 pm Comments DCP- Discharge Planning Updated by [id number]: Ewa Nguyen on 01/22/20 5:[address] CM met with pt sister at bedside. The patient sister states that she lives out of state, but the family is capable of keeping the patient at home. States the family has nurses, and nurse aides and feel that they are capable of taking 24 care of the patient at home. States they would like home health if available to help them in providing support, and additional care. AIMEE spoke with Rudy from [facility] at [phone] and faxed referral for review. Cm anticipated the need for enteral feeds, and received verbal permission to send referral to [facility] for Feeds. AIMEE spoke with Celestino at [phone] who states they can accommodate her needs at [facility] and faxed referral. CM will continue to assist as needed in DC planning. Ewa Nguyen MSN,RN,CM DCP- Discharge Planning Updated by [email or web address]: Ewa Nguyen on 01/21/20 1:[address] Patient Name: STEVE DORAN Admission Status: ER Accout number: [id number] Admission Date: 01-08-2020 : 1965 Admission Diagnosis:EPILEPSY, UNSPECIFIED, INTRACTABLE, WITH STATUS EPILEPT Attending: DENY Current LOS: 13 Anticipated DC Date: Planned Disposition: Primary Insurance: HU[employer]NA CHOICE PPO MCR ADVANT Discharge Planning Comments: AIMEE spoke to pt Elieser at [phone] over phone to discuss dc planning. AIMEE educated Elieser on the CM role and verbal consent given to complete assessment. Patient lives at home with Elieser. DC disposition is unknown at this time per Elieser. CM educated Elieser that the pt will need 24 hour care at dc. Cj states he is unsure if he can provide that care. States pt sister will be arriving at 3 pm today and they will discuss home vs long-term placement. CM will continue to follow and will assist as needed with dc plans/needs. Asphalt Plant Operator: Ewa Nguyen DCPIA - Discharge Planning Initial Assessment Updated by [email or web address]: Ewa Nguyen on 01/21/20 2:29 pm * Is the patient Alert and Oriented? No * PCP [facility] IN [place]. UNWARE OF NAME * [facility]) * Preadmission Environment Home with Family * Equipment Rolling Walker * List name and contact numbers for known caregivers / representatives who currently or will assist patient after discharge: ELIESER DORAN [phone] * Verbal permission to speak to the caregivers and representatives has been obtained from the patient. Yes * Additional services required to return to the preadmission environment? Yes * Can the patient safely return to the preadmission environment? No * Has this patient been hospitalized within the prior 30 days at any hospital? No Last DP export: 01/22/20 5:39 p Patient Name: STEVE DORAN Page [phone] at 1847 All edits/amendments must be made on the electronic document DICTATION DATE: 01/22/201846 BILL CUTTER: GENE 01/22/201846 RPT#: [id number] DE DATE: STATUS: ADM IN [facility] [address] [place] [address] END OF REPORT
--- NOTE | 2020-01-22 19:00 | NUR ---
REPORT RECEIVED, WILL CONTINUE POC. PATIENT IS ALERT AND CONFUSED WITH GARBLED SPEECH. NO S/S OF DISTRESS OBSERVED, RR EVEN AND UNLABORED ON ROOM AIR. PATIENT DENIES NEEDS AT THIS TIME. CL IN REACH, BED LOCKED AND LOWERED. FAMILY MEMBER AT BEDSIDE. WILL CTM.
[2020-01-22 20:00] VITALS: BP 133/58
--- NOTE | 2020-01-22 20:45 | NUR ---
FAMILY MEMBER EXPRESSED CONCERNED ABOUT PATIENTS AGITATION. PATIENT DOES SEEM A LITTLE AGITATED DUE TO NOT BEING ABLE TO EXPRESS HERSELF. PAGED GEOVANY YANES APN FOR MEDICATION FOR ANXIETY AND AGITATION. NEW ORDERS RECEIVED.
[2020-01-23] VITALS: BP 106/61
[2020-01-23 04:00] VITALS: BP 103/62
[2020-01-23 06:07] LABS: BASOPHILS 0.1 % (0-2); EOSINOPHILS 0.1 % (0-7); HEMOGLOBIN 9.8 g/dL (12-16); IMMATURE GRANULOCYTES 0.6 % (0-5); LYMPHOCYTES 12.8 % (15-50); MCH 30.1 pg (26.0-34.0); MCHC 31.6 g/dL (31.0-37.0); MCV 95.1 fL (80.0-100.0); MEAN PLATELET VOLUME 8.7 fL (7.4-10.4); MONOCYTES 4.2 % (2-11); NEUTROPHILS 82.2 % (40-80); RBC 3.26 10x6/uL (4.00-5.40); RDW 14.9 % (11.5-14.5); WBC 7.9 10x3/uL (4.8-10.8)
[2020-01-23 06:41] LABS: PLATELET COUNT 246 10x3/uL (130-400)
[2020-01-23 08:06] LABS: CALCIUM 7.2 mg/dL (8.5-10.1); CHLORIDE - SERUM 104 mmol/L (98-107); CREATININE - SERUM 0.2 mg/dL (0.6-1.3); GLUCOSE 73 mg/dL (74-106); MAGNESIUM - SERUM 1.3 mg/dL (1.8-2.4); PHOSPHOROUS 2.9 mg/dL (2.5-4.9); SODIUM 141 mmol/L (136-145); eGFR NON AFRICAN AMERICAN > 90 mL/min (90-120)
[2020-01-23 08:09] LABS: CALC OSMOLALITY 275 mosm/kg (275-300); UREA NITROGEN 2 mg/dL (7-18)
[2020-01-23 08:11] LABS: POTASSIUM - SERUM 2.7 mmol/L (3.5-5.1)
[2020-01-23 09:00] VITALS: BP 124/58
[2020-01-23 10:14] LABS: ALBUMIN 1.2 g/dL (3.4-5.0); PRE-ALBUMIN 11.5 mg/dL (18.0-35.7)
--- NOTE | 2020-01-23 12:29 | NUR ---
PREOP ANCEF ADMINISTERED AT THIS TIME
[2020-01-23 19:12] VITALS: BP 108/50
[2020-01-23 20:00] VITALS: BP 96/50
--- NOTE | 2020-01-23 21:51 | NUR ---
OT NOTE: PT COMPLETED SUPINE TO SIT WITH TOTAL A. PT COMPLETED EOB SITTING WITH TOTAL A. PT POSITIONED TO BEAR WT THROUGH RUE. [phone] THANK YOU,JUANCARLOS DURBIN
[2020-01-24] VITALS: BP 94/53
[2020-01-24 04:00] VITALS: BP 98/55
[2020-01-24 05:55] LABS: BASOPHILS 0.1 % (0-2); EOSINOPHILS 0.1 % (0-7); HEMATOCRIT 30.4 % (36.0-48.0); HEMOGLOBIN 9.6 g/dL (12-16); IMMATURE GRANULOCYTES 0.3 % (0-5); LYMPHOCYTES 10.3 % (15-50); MCH 30.3 pg (26.0-34.0); MCHC 31.6 g/dL (31.0-37.0); MCV 95.9 fL (80.0-100.0); MEAN PLATELET VOLUME 8.8 fL (7.4-10.4); MONOCYTES 2.4 % (2-11); NEUTROPHILS 86.8 % (40-80); PLATELET COUNT 241 10x3/uL (130-400); RBC 3.17 10x6/uL (4.00-5.40)
[2020-01-24 05:58] LABS: WBC 10.4 10x3/uL (4.8-10.8)
[2020-01-24 06:50] LABS: CALC OSMOLALITY 275 mosm/kg (275-300); CALCIUM 7.2 mg/dL (8.5-10.1); CARBON DIOXIDE 32.3 mmol/L (21.0-32.0); CHLORIDE - SERUM 104 mmol/L (98-107); CREATININE - SERUM 0.2 mg/dL (0.6-1.3); GLUCOSE 83 mg/dL (74-106); MAGNESIUM - SERUM 1.3 mg/dL (1.8-2.4); SODIUM 141 mmol/L (136-145); UREA NITROGEN 2 mg/dL (7-18); eGFR NON AFRICAN AMERICAN > 90 mL/min (90-120)
--- NOTE | 2020-01-24 10:20 | NUR ---
Nutrition Consult/Follow-up: S/p PEG placement yesterday. Received consult for TF. Diet: NPO No new wt; last wt: 169# (01/17) Last BM: 01/19 per chart Labs noted: K+ 3.0, Ca 7.2, Mg 1.3 Meds noted: Protonix, electrolyte protocol -When PEG ok to use, start Jevity 1.2 @ 15 mL/hr and increase by 10 mL/hr q 6 hrs as tolerated to goal rate of 55 mL/hr + H2O flushes 25 mL q hr. -Need new wt; noted daily wts ordered. -RD following.
--- NOTE | 2020-01-24 11:39 | NUR ---
FAMILY IN ROOM, REQUESTED PT HAVE A BED BATH. PT HAD BM AND VOID X1. BED BATH RECIEVED. MEPILEX AND CALMOSEPTINE PLACED ON BOTTOM. PADDED MEPILEX PLACED TO BACK OF HEAD. POSITIONED ONTO RIGHT SIDE TO COMFORT. EXTRA BLANKETS PROVIDED. BOTH FAMILY MEMBER AND PT DENIES NEEDS AT THIS TIME. CALL LIGHT WITHIN REACH. BED IN LOWEST POSITION. WILL CONTINUE TO MONITOR.
--- NOTE | 2020-01-24 13:27 | NUR ---
I have reviewed this patient and I concur with the Shift Assessment completed by the Licensed Practical Nurse today this shift.
--- NOTE | 2020-01-24 14:23 | NUR ---
OT NOTE: ASSIST X 2 FOR SUPINE TO SIT, BED MOB , AND SITTING BALANCE. PT DID INITITATE REACHING FOR THERAPIST WITH L HAND TO ASSIST IN STABILIZING HERSELF. TOLERATED SITTING UP ON EOB FOR APPROX 5 MIN. MAX ASSIST FOR ROLLING IN BED AND REPOSITIONING. LOIDA ESPINOZA, OTR/L [phone]
--- NOTE | 2020-01-24 16:00 | NUR ---
SPOKE WITH SISTER ON PHONE, SHE STATES SHE WAS CONCERNED BECAUSE PT HAD A GASTRIC SLEEVE DONE X4 YEARS AGO AND NEEDED TO WATCH THE VOLUME OF FLUIDS. CALLED AND SPOKE WITH SANA TIMBER MANAGEMENT ASSISTANT. SHE STATED IT WAS STILL OKAY TO PROCEED WITH REGULAR ORDERS. TUBE FEEDS INITIATED STARTING AT 15MLS/HOUR AND 25MLS/HOUR FLUSH. 0 ML RESIDUAL AT THIS TIME. CALL LIGHT WITHIN REACH. WILL CONTINUE TO MONITOR.
[2020-01-24 18:20] VITALS: BP 105/64
[2020-01-24 20:00] VITALS: BP 105/54; BP 93/65
--- NOTE | 2020-01-24 21:30 | NUR ---
I HAVE BEEN IN PT ROOM MULTIPLE TIMES AT THIS POINT IN SHIFT VARIOUS REQUESTS FROM FAMILY MEDS AND CLEANING OF PT DONE BED LOW AND LOCKED FEEDING TUBE WITH HEAD OF BED UP PURE WICK IN PLACE FAMILY WITH CALL LIGHT
[2020-01-25] VITALS: BP 93/65
[2020-01-25 04:00] VITALS: BP 103/64
[2020-01-25 08:01] VITALS: BP 125/74
[2020-01-25 10:03] LABS: ALBUMIN 1.2 g/dL (3.4-5.0); ALKALINE PHOSPHATASE 70 U/L (30-120); ALT (SGPT) 21 U/L (10-68); BILIRUBIN - TOTAL 0.19 mg/dL (0.2-1.3); CARBON DIOXIDE 35.4 mmol/L (21.0-32.0); CHLORIDE - SERUM 104 mmol/L (98-107); GLUCOSE 107 mg/dL (74-106); PROTEIN - SERUM 4.7 g/dL (6.4-8.2); SODIUM 140 mmol/L (136-145)
[2020-01-25 10:04] LABS: CALC OSMOLALITY 275 mosm/kg (275-300); CREATININE - SERUM 0.3 mg/dL (0.6-1.3); UREA NITROGEN 3 mg/dL (7-18); eGFR NON AFRICAN AMERICAN > 90 mL/min (90-120)
[2020-01-25 10:13] LABS: POTASSIUM - SERUM 2.6 mmol/L (3.5-5.1)
[2020-01-25 10:16] LABS: BASOPHILS 0.1 % (0-2); EOSINOPHILS 0 % (0-7); IMMATURE GRANULOCYTES 0.3 % (0-5); LYMPHOCYTES 14.1 % (15-50); MCH 30.4 pg (26.0-34.0); MCHC 31.3 g/dL (31.0-37.0); MCV 97.3 fL (80.0-100.0); MEAN PLATELET VOLUME 8.9 fL (7.4-10.4); MONOCYTES 3.1 % (2-11); NEUTROPHILS 82.4 % (40-80); PLATELET COUNT 248 10x3/uL (130-400); RBC 3.29 10x6/uL (4.00-5.40); RDW 15.1 % (11.5-14.5); WBC 11.8 10x3/uL (4.8-10.8)
[2020-01-25 12:30] VITALS: BP 108/66
--- NOTE | 2020-01-25 13:50 | NUR ---
PT WAS BATHED AND LINEN WERE CHANGED WITH THE ASSISTANCE OF HIREN BRAY AND MOTHER. WILL CTM.
--- NOTE | 2020-01-25 15:13 | NUR ---
Rehab Note- Acute Inpatient Rehab prescreen order received. THe patient currently is too low level per PT & OT notes for inpatient acute rehab stay to participate in the required 3hrs/day of therapy as she is noted total Ax2 & unable to hold self up in a sitting position. Thank you for this referral! Olesya Woodward RN Clinical Liaison, [facility] Rehab
--- NOTE | 2020-01-25 15:46 | NUR ---
Nutrition consult: Received consult for loose stools. RDN added Hernan nutritional supplement BID which may help with loose stools RDN following.
--- NOTE | 2020-01-25 15:56 | NUR ---
FLAVIO ORDERED PER DIETARY RECOMMENDATIONS. 1PKT BID WITH TUBE FEEDING
[2020-01-25 16:02] VITALS: BP 123/69
[2020-01-25 16:13] LABS: MAGNESIUM - SERUM 1.4 mg/dL (1.8-2.4)
[2020-01-25 16:26] LABS: POTASSIUM - SERUM 2.5 mmol/L (3.5-5.1)
--- NOTE | 2020-01-25 19:52 | NUR ---
RECIEVED UP IN BED WITH HOB ELEVATED. ALERT AND CONFUSED. DOES NOT ANSWER QUESTIONS. RT ARM REASERVED. O2@ 2 LITERS PER N/C . IV TO RT CHEST WITH POTASSIUM INFUSING AT THIS TIME. HAS A PORT TO RT CHEST. PEG TUBE DISCONECTED BY DAY SHIFT. ABD BINDER IN PLACE. TELEMETRY IN PLACE. NO S/S OF DISTRESS OBSERVED.
[2020-01-25 20:00] VITALS: BP 98/64
[2020-01-26 04:00] VITALS: BP 109/66
[2020-01-26 08:13] VITALS: BP 131/77
[2020-01-26 10:01] LABS: BASOPHILS 0.1 % (0-2); EOSINOPHILS 0.2 % (0-7); HEMATOCRIT 31.5 % (36.0-48.0); HEMOGLOBIN 9.8 g/dL (12-16); IMMATURE GRANULOCYTES 0.3 % (0-5); LYMPHOCYTES 12.8 % (15-50); MCH 30.5 pg (26.0-34.0); MCHC 31.1 g/dL (31.0-37.0); MCV 98.1 fL (80.0-100.0); MEAN PLATELET VOLUME 8.3 fL (7.4-10.4); MONOCYTES 4.7 % (2-11); NEUTROPHILS 81.9 % (40-80); PLATELET COUNT 232 10x3/uL (130-400); RBC 3.21 10x6/uL (4.00-5.40); RDW 15.1 % (11.5-14.5); WBC 11.6 10x3/uL (4.8-10.8)
[2020-01-26 10:20] LABS: CALC OSMOLALITY 281 mosm/kg (275-300); CARBON DIOXIDE 34.5 mmol/L (21.0-32.0); CHLORIDE - SERUM 104 mmol/L (98-107); CREATININE - SERUM 0.2 mg/dL (0.6-1.3); GLUCOSE 132 mg/dL (74-106); POTASSIUM - SERUM 3.1 mmol/L (3.5-5.1); SODIUM 142 mmol/L (136-145); UREA NITROGEN 3 mg/dL (7-18); eGFR NON AFRICAN AMERICAN > 90 mL/min (90-120)
[2020-01-26 12:00] VITALS: BP 110/73
[2020-01-26 16:00] VITALS: BP 132/72
--- NOTE | 2020-01-26 17:18 | NUR ---
FLAVIO ADMININSTERED PER PEG. RESIDUAL CHECKED AND 3ML RECORDED. INCREASED TUBE FEED TO 55ML/HR WITH 25ML/HR FLUSHES QHR. CLEANED PT AND APPLIED NEW LINENS. PETER APPLIED TO BUTTOCK AND GROIN. PUREWICK IN PLACE. NEW MEPILEX APPLIED TO BUTTOCK. FAMILY VERY APPRECIATIVE FOR LEVEL OF CARE RECEIVED. WILL CTM.
[2020-01-26 20:00] VITALS: BP 104/51
--- NOTE | 2020-01-26 21:53 | NUR ---
PM MEDICATIONS ADMININSTERED. FAMILY AT BEDSIDE. NO S/S OF DISTRESS NOTED. PT OR FAMILY DENIES ANY NEEDS AT THIS TIME. RESIDUAL OF 3ML CHECKED. TUBE FEEDING @55ML/HR. PT CLEANED AND APPLIED NEW LINEN. PETER APPLIED TO BUTTOCK. SECOND POTASSIUM RIDER INFUSING WITH 50ML/HR VIA R.CHEST HEMESPLIT. WILL CTM.
[2020-01-27] VITALS: BP 89/46
[2020-01-27 04:00] VITALS: BP 103/57
--- NOTE | 2020-01-27 04:51 | NUR ---
PT CONTINUES TO MOAN AND APPEAR RESTLESS AT TIMES. REPOSITONED FOR COMFORT. MOTHER AT BEDSIDE. 5ML RESIDUAL NOTED, PT TOLERATING TUBE FEEDINGS WELL. NO FURTHER NEEDS EXPRESSED. WILL CPOC.
[2020-01-27 06:40] LABS: BASOPHILS 0.1 % (0-2); EOSINOPHILS 0 % (0-7); HEMATOCRIT 29.6 % (36.0-48.0); HEMOGLOBIN 9.2 g/dL (12-16); IMMATURE GRANULOCYTES 0.4 % (0-5); MCH 30.7 pg (26.0-34.0); MCHC 31.1 g/dL (31.0-37.0); MCV 98.7 fL (80.0-100.0); MEAN PLATELET VOLUME 8.6 fL (7.4-10.4); MONOCYTES 4.4 % (2-11); NEUTROPHILS 80.1 % (40-80); PLATELET COUNT 252 10x3/uL (130-400); RDW 15.3 % (11.5-14.5); WBC 11.6 10x3/uL (4.8-10.8)
[2020-01-27 08:00] VITALS: BP 111/67
[2020-01-27 08:29] LABS: CALC OSMOLALITY 280 mosm/kg (275-300); CALCIUM 7.1 mg/dL (8.5-10.1); CARBON DIOXIDE 30.7 mmol/L (21.0-32.0); CHLORIDE - SERUM 105 mmol/L (98-107); CREATININE - SERUM 0.3 mg/dL (0.6-1.3); GLUCOSE 136 mg/dL (74-106); POTASSIUM - SERUM 3.1 mmol/L (3.5-5.1); SODIUM 141 mmol/L (136-145); UREA NITROGEN 8 mg/dL (7-18); eGFR NON AFRICAN AMERICAN > 90 mL/min (90-120)
[2020-01-27 16:00] VITALS: BP 113/68
--- NOTE | 2020-01-27 16:22 | MORECARE ---
CASE MANAGEMENT DISCHARGE SUMMARY PATIENT: STEVE DORAN UNIT: [id number] ADM DATE: 01/08/20 AGE: 54 : 67 SEX: F ROOM/BED: D.2725 AUTHOR: RANDOLPH,DOC PHYSICIAN: REFERRING PHYSICIAN: MAME JUNG MD DATE OF SERVICE: 01/27/20 Discharge Plan Patient Name: STEVE DORAN Facility: [facility]:[place] : 1965 Planned Disposition: Home Health Service Anticipated Discharge Date: Discharge Date: Expected LOS: Initial Reviewer: [email or web address] Initial Review Date: 01/08/2020 Generated: 01/27/20 5:21 pm DCP- Discharge Planning Updated by [email or web address]: Ewa Nguyen on 01/22/20 5:[address] CM met with pt sister at bedside. The patient sister states that she lives out of state, but the family is capable of keeping the patient at home. States the family has nurses, and nurse aides and feel that they are capable of taking 24 care of the patient at home. States they would like home health if available to help them in providing support, and additional care. AIMEE spoke with Rudy from [facility] at [phone] and faxed referral for review. Cm anticipated the need for enteral feeds, and received verbal permission to send referral to [facility] for Feeds. AIMEE spoke with Celestino at [phone] who states they can accommodate her needs at [facility] and faxed referral. CM will continue to assist as needed in DC planning. Ewa Nguyen MSN,RN,CM DCP- Discharge Planning Updated by [email or web address]: Ewa Nguyen on 01/21/20 1:[address] Patient Name: STEVE DORAN Admission Status: ER Accout number: [id number] Admission Date: 01-08-2020 : 1965 Admission Diagnosis:EPILEPSY, UNSPECIFIED, INTRACTABLE, WITH STATUS EPILEPT Attending: DENY Current LOS: 13 Anticipated DC Date: Planned Disposition: Primary Insurance: HU[employer]NA CHOICE PPO MCR ADVANT Discharge Planning Comments: AIMEE spoke to pt Elieser at [phone] over phone to discuss dc planning. AIMEE educated Elieser on the CM role and verbal consent given to complete assessment. Patient lives at home with Elieser. DC disposition is unknown at this time per Elieser. CM educated Elieser that the pt will need 24 hour care at dc. Cj states he is unsure if he can provide that care. States pt sister will be arriving at 3 pm today and they will discuss home vs long-term placement. CM will continue to follow and will assist as needed with dc plans/needs. Health Services Administrator: Ewa Nguyen DCPIA - Discharge Planning Initial Assessment Updated by [email or web address]: Ewa Nguyen on 01/21/20 2:29 pm * Is the patient Alert and Oriented? No * PCP [facility] IN [place]. UNWARE OF NAME * [facility] ([place] * Preadmission Environment Home with Family * Equipment Rolling Walker * List name and contact numbers for known caregivers / representatives who currently or will assist patient after discharge: ELIESER DORAN [phone] * Verbal permission to speak to the caregivers and representatives has been obtained from the patient. Yes * Additional services required to return to the preadmission environment? Yes * Can the patient safely return to the preadmission environment? No * Has this patient been hospitalized within the prior 30 days at any hospital? No External Providers External Provider: [facility] Next Contact Date: Service Request Date: Service Type: Resolution: Reviewer: Comments: Last DP export: 01/22/20 5:47 p Patient Name: STEVE DORAN Page [phone] at 1622 All edits/amendments must be made on the electronic document DICTATION DATE: 01/27/201620 PRINTING MECHANIST: GENE 01/27/20 162 RPT#: [id number] DC DATE: STATUS: ADM IN [facility] [address] [place] [address] END OF REPORT
--- NOTE | 2020-01-27 16:28 | MORECARE ---
CASE MANAGEMENT DISCHARGE SUMMARY PATIENT: STEVE DORAN UNIT: [id number] ADM DATE: 01/08/20 AGE: 54 : 67 SEX: F ROOM/BED: D.3083 AUTHOR: RANDOLPH,DOC PHYSICIAN: REFERRING PHYSICIAN: MAME JUNG MD DATE OF SERVICE: 01/27/20 Discharge Plan Patient Name: STEVE DORAN Facility: [facility]:[place] : 1965 Planned Disposition: Home Health Service Anticipated Discharge Date: Discharge Date: Expected LOS: Initial Reviewer: [email or web address] Initial Review Date: 01/08/2020 Generated: 01/27/20 5:28 pm Comments DCP- Discharge Planning Updated by [email or web address]: Ewa Mccoy on 01/27/20 3:[address] Patient Name: STEVE DORAN Admission Status: ER Accout number: [id number] Admission Date: 01-08-2020 : 1965 Admission Diagnosis:EPILEPSY, UNSPECIFIED, INTRACTABLE, WITH STATUS EPILEPT Attending: DENY Current LOS: 19 Anticipated DC Date: Planned Disposition: Home Health Service Primary Insurance: HU[employer]NA CHOICE PPO MCR ADVANT Discharge Planning Comments: CM MET WITH FAMILY PER REQUEST TO SET UP HOSPICE. CM SPOKE WITH HER DAUGHTER AT BEDSIDE, WHO STATES SHE WOULD LIKE TO TAKE HER MOM HOME WITH [facility]. AIMEE SPOKE WITH WENDY AT [facility] AND FAXED REFERRAL. [facility] WILL MEET WITH FAMILY TOMORROW AND SET UP DME FOR HOME HOSPICE IF APPROPRIATE. CM WILL CONTINUE ASSISTING APPROPRIATE. EWA MCCOY MSN,RN,CM Elastic Tape Inserter: Ewa Mccoy DCP- Discharge Planning Updated by [email or web address]: Ewa Mccoy on 01/22/20 5:[address] CM met with pt sister at bedside. The patient sister states that she lives out of state, but the family is capable of keeping the patient at home. States the family has nurses, and nurse aides and feel that they are capable of taking 24 care of the patient at home. States they would like home health if available to help them in providing support, and additional care. AIMEE spoke with Rudy from [facility] at [phone] and faxed referral for review. Aimee anticipated the need for enteral feeds, and received verbal permission to send referral to [facility] for Feeds. CM spoke with Celestino at [phone] who states they can accommodate her needs at [facility] and faxed referral. CM will continue to assist as needed in DC planning. Ewa Mccoy MSN,RN,CM DCP- Discharge Planning Updated by [id number]: Ewa Mccoy on 01/21/20 1:[address] Patient Name: STEVE DORAN Admission Status: ER Accout number: [id number] Admission Date: 01-08-2020 : 1965 Admission Diagnosis:EPILEPSY, UNSPECIFIED, INTRACTABLE, WITH STATUS EPILEPT Attending: DENY Current LOS: 13 Anticipated DC Date: Planned Disposition: Primary Insurance: HUMANA CHOICE [facility] Discharge Planning Comments: CM spoke to pt Elieser at [phone] over phone to discuss dc planning. CM educated Elieser on the CM role and verbal consent given to complete assessment. Patient lives at home with Elieser. DC disposition is unknown at this time per Elieser. CM educated Elieser that the pt will need 24 hour care at md. Cj states he is unsure if he can provide that care. States pt sister will be arriving at 3 pm today and they will discuss home vs long-term placement. CM will continue to follow and will assist as needed with dc plans/needs. Elastic Tape Inserter: Ewa Mccoy DCPIA - Discharge Planning Initial Assessment Updated by [id number]: Ewa Mccoy on 01/21/20 2:29 pm * Is the patient Alert and Oriented? No * PCP [facility] IN [place]. UNWARE OF NAME * [facility] ([place]) * Preadmission Environment Home with Family * Equipment Rolling Walker * List name and contact numbers for known caregivers / representatives who currently or will assist patient after discharge: ELIESER DORAN [phone] * Verbal permission to speak to the caregivers and representatives has been obtained from the patient. Yes * Additional services required to return to the preadmission environment? Yes * Can the patient safely return to the preadmission environment? No * Has this patient been hospitalized within the prior 30 days at any hospital? No Last DP export: 01/27/20 3:22 p Patient Name: STEVE DORAN Page 73752 at 1628 All edits/amendments must be made on the electronic document DICTATION DATE: 01/27/201627 DIPPER AND DRIER: GENE 01/27/201627 RPT#: [id number] DC DATE: STATUS: ADM IN [facility] [address] [place] [address] END OF REPORT
--- NOTE | 2020-01-27 18:10 | NUR ---
FAMILY MEMBER AT BS. REFUSED TO LET PARENT COACH CHECK FOR LOOSE STOOL AND STATED THAT SHE WOULD CHECK HER AND CHANGE HER IF NEEDED. I TOLD HER TO LET US KNOW EHAN AND IF SHE NEEDED SOME HELP IN HER CARE.
[2020-01-27 20:00] VITALS: BP 117/69
--- NOTE | 2020-01-27 22:41 | NUR ---
RECIEVED LAYING IN BED WITH HOB ELEVATED. LETHARGIC AND AROUSES WITH VERBAL STIMUL. NOT SPEAKING AT THIS TIME. JEVITY 1.2 INFUSING AT 55CC/HR. PORT TO RT CHEST WITH NS AT KVO. TELEMETRY IN PLACE. INCONT OF B/B. PUREWICK IN PLACE. NO S/S OF DISTRESS OBSERVED.
[2020-01-28] VITALS: BP 97/53
[2020-01-28 04:00] VITALS: BP 104/62
[2020-01-28 06:26] LABS: BASOPHILS 0 % (0-2); EOSINOPHILS 0 % (0-7); HEMATOCRIT 30.2 % (36.0-48.0); HEMOGLOBIN 9.1 g/dL (12-16); IMMATURE GRANULOCYTES 0.5 % (0-5); LYMPHOCYTES 11.2 % (15-50); MCHC 30.1 g/dL (31.0-37.0); MCV 99.7 fL (80.0-100.0); MEAN PLATELET VOLUME 8.8 fL (7.4-10.4); MONOCYTES 5.3 % (2-11); PLATELET COUNT 215 10x3/uL (130-400); RBC 3.03 10x6/uL (4.00-5.40); RDW 15.4 % (11.5-14.5); WBC 9.3 10x3/uL (4.8-10.8)
[2020-01-28 07:18] LABS: CALC OSMOLALITY 282 mosm/kg (275-300); CARBON DIOXIDE 31.5 mmol/L (21.0-32.0); CHLORIDE - SERUM 107 mmol/L (98-107); GLUCOSE 149 mg/dL (74-106); POTASSIUM - SERUM 3.4 mmol/L (3.5-5.1); SODIUM 141 mmol/L (136-145); UREA NITROGEN 9 mg/dL (7-18)
[2020-01-28 07:22] LABS: CREATININE - SERUM 0.4 mg/dL (0.6-1.3); eGFR NON AFRICAN AMERICAN > 90 mL/min (90-120)
[2020-01-28 09:00] VITALS: BP 129/83
[2020-01-28 12:49] VITALS: BP 121/66
--- NOTE | 2020-01-28 15:24 | NUR ---
PATIENT CLEANED OF INCONTINENT STOOL, PULLUP PLACED, TELEMETRY REMOVED, PEG TURNED OFF AND FLUSHED. PORT SALINE LOCKED. TRANSFERED TO [place] [id number] AND HOME VIA AMBULANCE UNDER THE CARE OF HOSPICE.
--- NOTE | 2020-01-28 15:52 | MORECARE ---
CASE MANAGEMENT DISCHARGE SUMMARY PATIENT: STEVE DORAN UNIT: [id number] ADM DATE: 01/08/20 AGE: 54 : 67 SEX: F ROOM/BED: D.0827 AUTHOR: RANDOLPH,DOC PHYSICIAN: REFERRING PHYSICIAN: MAME JUNG MD DATE OF SERVICE: 01/28/20 Discharge Plan Patient Name: STEVE DORAN Facility: [facility]:[place] : 1965 Planned Disposition: Home Health Service Anticipated Discharge Date: Discharge Date: 01/28/2020 Expected LOS: Initial Reviewer: [email or web address] Initial Review Date: 01/08/2020 Generated: 01/28/20 4:51 pm Comments DCP- Discharge Planning Updated by [email or web address]: Melodie Thorne on 01/28/20 2:[address] DC med list/order/summary faxed to [facility] /ATTN: Hortencia Owens. Discharged via EMS to hospice at home with [facility]. DCP- Discharge Planning Updated by [email or web address]: Ewa Mccoy on 01/27/20 3:[address] Patient Name: STEVE DORAN Admission Status: ER Accout number: [id number] Admission Date: 01-08-2020 : 1965 Admission Diagnosis:EPILEPSY, UNSPECIFIED, INTRACTABLE, WITH STATUS EPILEPT Attending: DENY Current LOS: 19 Anticipated DC Date: Planned Disposition: Home Health Service Primary Insurance: HUMANA CHOICE [facility] MCR ADVANT Discharge Planning Comments: AIMEE MET WITH FAMILY PER REQUEST TO SET UP HOSPICE. CM SPOKE WITH HER DAUGHTER AT BEDSIDE, WHO STATES SHE WOULD LIKE TO TAKE HER MOM HOME WITH [facility]. AIMEE SPOKE WITH WENDY AT [facility] AND FAXED REFERRAL. [facility] WILL MEET WITH FAMILY TOMORROW AND SET UP DME FOR HOME HOSPICE IF APPROPRIATE. CM WILL CONTINUE ASSISTING APPROPRIATE. EWA MCCOY MSN,RN,CM Child Welfare Specialist: Ewa Mccoy DCP- Discharge Planning Updated by [email or web address]: Ewa Mccoy on 01/22/20 5:[address] AIMEE met with pt sister at bedside. The patient sister states that she lives out of state, but the family is capable of keeping the patient at home. States the family has nurses, and nurse aides and feel that they are capable of taking 24 care of the patient at home. States they would like home health if available to help them in providing support, and additional care. CM spoke with Rudy from [facility] at [phone] and faxed referral for review. Cm anticipated the need for enteral feeds, and received verbal permission to send referral to [facility] for Feeds. CM spoke with Celestino at [phone] who states they can accommodate her needs at [facility] and faxed referral. CM will continue to assist as needed in DC planning. Ewa Mccoy MSN,RN,CM DCP- Discharge Planning Updated by [email or web address]: Ewa Mccoy on 01/21/20 1:[address] Patient Name: STEVE DORAN Admission Status: ER Accout number: [id number] Admission Date: 01-08-2020 : 1965 Admission Diagnosis:EPILEPSY, UNSPECIFIED, INTRACTABLE, WITH STATUS EPILEPT Attending: DENY Current LOS: 13 Anticipated DC Date: Planned Disposition: Primary Insurance: HU[employer]NA CHOICE [facility] Discharge Planning Comments: CM spoke to pt Elieser at [phone] over phone to discuss dc planning. CM educated Elieser on the CM role and verbal consent given to complete assessment. Patient lives at home with Elieser. DC disposition is unknown at this time per Elieser. CM educated Elieser that the pt will need 24 hour care at [place]. Cj states he is unsure if he can provide that care. States pt sister will be arriving at 3 pm today and they will discuss home vs long-term placement. CM will continue to follow and will assist as needed with dc plans/needs. Child Welfare Specialist: Ewa Mccoy DCPIA - Discharge Planning Initial Assessment Updated by [email or web address]: Ewa Mccoy on 01/21/20 2:29 pm * Is the patient Alert and Oriented? No * PCP ALL IN [place]. UNWARE OF NAME * [facility]acy [facility] ([place]) * Preadmission Environment Home with Family * Equipment Rolling Walker * List name and contact numbers for known caregivers / representatives who currently or will assist patient after discharge: ELIESER DORAN [phone] * Verbal permission to speak to the caregivers and representatives has been obtained from the patient. Yes * Additional services required to return to the preadmission environment? Yes * Can the patient safely return to the preadmission environment? No * Has this patient been hospitalized within the prior 30 days at any hospital? No Last DP export: 01/27/20 3:28 p Patient Name: STEVE DORAN Page [id number] at 1552 All edits/amendments must be made on the electronic document DICTATION DATE: 01/28/201550 KITCHEN WORKER: GENE 01/28/201550 RPT#: [id number] DC DATE:01/28/20 STATUS: DIS IN [facility] [address] [place] [address] END OF REPORT
--- NOTE | 2020-01-29 08:57 | NUR ---
OT NOTE: (DOS 01/28/20) PT COMPLETED RUE PROM TOLERATED. PT COMPLETED LUE AAROM TOLERATED. PT COMPLETED RUE POSITIONING WITH TOTAL A. PT COMPLETED FACE HYGIENE WITH MIN/MOD A. [phone] THANK YOU,JUANCARLOS DURBIN
--- NOTE | 2020-01-31 07:07 | MORECARE ---
CASE MANAGEMENT DISCHARGE SUMMARY PATIENT: STEVE DORAN UNIT: [id number] ADM DATE: 01/08/20 AGE: 54 : 67 SEX: F ROOM/BED: D.5885 AUTHOR: RANDOLPH,DOC PHYSICIAN: REFERRING PHYSICIAN: MAME JUNG MD DATE OF SERVICE: 01/31/20 Discharge Plan Patient Name: STEVE DORAN Facility: [facility]:[place] : 1965 Planned Disposition: Home Health Service Anticipated Discharge Date: Discharge Date: 01/28/2020 Expected LOS: 0 Initial Reviewer: [id number] Initial Review Date: 01/08/2020 Generated: 01/31/20 8:06 am Comments DCP- Discharge Planning Updated by [email or web address]: Melodie Thorne on 01/28/20 2:[address] DC med list/order/summary faxed to [facility] /ATTN: Hortencia Owens. Discharged via EMS to hospice at home with [facility]. DCP- Discharge Planning Updated by [email or web address]: Ewa Mccoy on 01/27/20 3:[address] Patient Name: STEVE DORAN Admission Status: ER Accout number: [id number] Admission Date: 01-08-2020 : 1965 Admission Diagnosis:EPILEPSY, UNSPECIFIED, INTRACTABLE, WITH STATUS EPILEPT Attending: DENY Current LOS: 19 Anticipated DC Date: Planned Disposition: Home Health Service Primary Insurance: HUMANA CHOICE [facility] MCR ADVANT Discharge Planning Comments: AIMEE MET WITH FAMILY PER REQUEST TO SET UP HOSPICE. CM SPOKE WITH HER DAUGHTER AT BEDSIDE, WHO STATES SHE WOULD LIKE TO TAKE HER MOM HOME WITH [facility]. AIMEE SPOKE WITH WENDY AT [facility] AND FAXED REFERRAL. [facility] WILL MEET WITH FAMILY TOMORROW AND SET UP DME FOR HOME HOSPICE IF APPROPRIATE. CM WILL CONTINUE ASSISTING APPROPRIATE. EWA MCCOY MSN,RN,CM Underground Mine Machinery Mechanic: Ewa Mccoy DCP- Discharge Planning Updated by [id number]: Ewa Mccoy on 01/22/20 5:[address] CM met with pt sister at bedside. The patient sister states that she lives out of state, but the family is capable of keeping the patient at home. States the family has nurses, and nurse aides and feel that they are capable of taking 24 care of the patient at home. States they would like home health if available to help them in providing support, and additional care. CM spoke with Rudy from [facility] at [phone] and faxed referral for review. Cm anticipated the need for enteral feeds, and received verbal permission to send referral to [facility] for Feeds. CM spoke with Celestino at [phone] who states they can accommodate her needs at [facility] and faxed referral. CM will continue to assist as needed in DC planning. Ewa Mccoy MSN,RN,CM DCP- Discharge Planning Updated by [email or web address]: Ewa Mccoy on 01/21/20 1:[address] Patient Name: STEVE DORAN Admission Status: ER Accout number: [id number] Admission Date: 01-08-2020 : 1965 Admission Diagnosis:EPILEPSY, UNSPECIFIED, INTRACTABLE, WITH STATUS EPILEPT Attending: DENY Current LOS: 13 Anticipated DC Date: Planned Disposition: Primary Insurance: HUMANA CHOICE [facility] Discharge Planning Comments: CM spoke to pt Elieser at [phone] over phone to discuss dc planning. CM educated Elieser on the CM role and verbal consent given to complete assessment. Patient lives at home with Elieser. DC disposition is unknown at this time per Elieser. CM educated Elieser that the pt will need 24 hour care at [place]. Cj states he is unsure if he can provide that care. States pt sister will be arriving at 3 pm today and they will discuss home vs long-term placement. CM will continue to follow and will assist as needed with dc plans/needs. Underground Mine Machinery Mechanic: Ewa Mccoy DCPIA - Discharge Planning Initial Assessment Updated by [email or web address]: Ewa Mccoy on 01/21/20 2:29 pm * Is the patient Alert and Oriented? No * PCP [facility] IN [place]. UNWARE OF NAME * [facility]acy [facility] ([place]) * Preadmission Environment Home with Family * Equipment Rolling Walker * List name and contact numbers for known caregivers / representatives who currently or will assist patient after discharge: ELIESER DORAN [phone] * Verbal permission to speak to the caregivers and representatives has been obtained from the patient. Yes * Additional services required to return to the preadmission environment? Yes * Can the patient safely return to the preadmission environment? No * Has this patient been hospitalized within the prior 30 days at any hospital? No Last DP export: 01/28/20 2:52 p Patient Name: STEVE DORAN Page [id number] at 0707 All edits/amendments must be made on the electronic document DICTATION DATE: 01/31/20705 SUPERVISOR SEWING DEPARTMENT: GENE 01/31/20705 RPT#: [id number] DC DATE:01/28/20 STATUS: DIS IN [facility] [address] [place] [address] END OF REPORT
== END 2020-01-28 15:26 | disposition home health service (06) | DRG 870 ==
LOC: D.ER 06:52 → D.M2 14:26 → D.ICU 14:26 → D.M2 01-18 11:04
PROVIDERS: Family Medicine; Internal Medicine Pulmonary Disease; Surgery; ADMIT Family Medicine; ATTEND Family Medicine
PROC: 5A1955Z Respiratory Ventilation, Greater than 96 Consecutive Hours (ICD-10-PCS; principal; 2020-01-08)
PROC: 0BH17EZ Insertion of Endotracheal Airway into Trachea, Via Natural or Artificial Opening (ICD-10-PCS; 2020-01-08)
PROC: 0B998ZZ Drainage of Lingula Bronchus, Via Natural or Artificial Opening Endoscopic (ICD-10-PCS; 2020-01-11)
PROC: 0B948ZZ Drainage of Right Upper Lobe Bronchus, Via Natural or Artificial Opening Endoscopic (ICD-10-PCS; 2020-01-11)
PROC: 0B988ZZ Drainage of Left Upper Lobe Bronchus, Via Natural or Artificial Opening Endoscopic (ICD-10-PCS; 2020-01-11)
PROC: 0B918ZZ Drainage of Trachea, Via Natural or Artificial Opening Endoscopic (ICD-10-PCS; 2020-01-11)
PROC: 0B938ZZ Drainage of Right Main Bronchus, Via Natural or Artificial Opening Endoscopic (ICD-10-PCS; 2020-01-11)
PROC: 0B978ZZ Drainage of Left Main Bronchus, Via Natural or Artificial Opening Endoscopic (ICD-10-PCS; 2020-01-11)
PROC: 0B968ZZ Drainage of Right Lower Lobe Bronchus, Via Natural or Artificial Opening Endoscopic (ICD-10-PCS; 2020-01-11)
PROC: 0B9B8ZZ Drainage of Left Lower Lobe Bronchus, Via Natural or Artificial Opening Endoscopic (ICD-10-PCS; 2020-01-11)
PROC: 0DH63UZ Insertion of Feeding Device into Stomach, Percutaneous Approach (ICD-10-PCS; 2020-01-23)
DX: A41.9 Sepsis, unspecified organism (principal); I21.A1 Myocardial infarction type 2; J96.01 Acute respiratory failure with hypoxia; E43 Unspecified severe protein-calorie malnutrition; J15.6 Pneumonia due to other Gram-negative bacteria; G40.911 Epilepsy, unspecified, intractable, with status epilepticus; E87.2 Acidosis; C79.31 Secondary malignant neoplasm of brain; N39.0 Urinary tract infection, site not specified; R65.10 Systemic inflammatory response syndrome (SIRS) of non-infectious origin without acute organ dysfunction; R73.9 Hyperglycemia, unspecified; J45.909 Unspecified asthma, uncomplicated; I20.9 Angina pectoris, unspecified; K21.9 Gastro-esophageal reflux disease without esophagitis; F41.9 Anxiety disorder, unspecified; D53.9 Nutritional anemia, unspecified; C50.919 Malignant neoplasm of unspecified site of unspecified female breast; B96.1 Klebsiella pneumoniae [K. pneumoniae] as the cause of diseases classified elsewhere; I10 Essential (primary) hypertension; R53.81 Other malaise